=== PATIENT | female | born 1990 | race Caucasian/White ===

== ENCOUNTER 2018-01-18 07:13 | Inpatient (IN) | payer OTHER ==
[2018-01-18] MEDS ORDERED: ACETAMINOPHEN 500 MG TAB PO PRN (07:55)
[2018-01-18] MEDS ORDERED: METOCLOPRAMIDE 10 MG/2mL INJ IV PRN (07:55)
[2018-01-18] MEDS ORDERED: miSOPROStol 100 MCG TAB PO ONE (07:55)
[2018-01-18] MEDS ORDERED: ONDANSETRON 4 MG/2 ML VIAL IV PRN (07:55)
[2018-01-18] MEDS ORDERED: Ringers Lactate 1,000 ML IV PRN (07:55)
[2018-01-18] MEDS ORDERED: Ringers Lactate 1,000 ML IV SCH (08:00)
[2018-01-18] MEDS ORDERED: DIPHENHYDRAMINE 50 MG/ML VIAL IV PRN (08:02)
[2018-01-18 08:24] LABS: RPR Titer ND
[2018-01-18 08:36] LABS: Absolute Lymphocytes (CBC) 1.9 K/uL (0.7-4.9); Absolute Monocytes 0.6 K/uL (0.1-1.3); Absolute Neutrophil 6.8 K/uL (1.8-8.0); Basophils % 0.4 % (0-1.3); Eosinophils % 1.9 % (0-4.4); Hematocrit 31.9 % (36.0-45.0); Lymphocytes % 20.4 % (15.3-44.8); MCH 32.1 pg (27.0-35.0); MCV 89.5 fL (80-100); MPV 11.4 fL (7.6-11.3); Monocytes % 6.2 % (3.3-12.3); RBC Red Blood Cell Count 3.56 M/uL (3.86-4.86)
[2018-01-18 08:45] LABS: Urine Appearance CLOUDY; Urine Blood 1+ (NEG); Urine Color DK YELLOW; Urine Glucose NEGATIVE (NEG); Urine Protein 2+ (NEG); Urine Specific Gravity 1.025 (1.005-1.030); Urine Urobilinogen 0.2 mg/dL (0.2-1.0)
[2018-01-18 09:16] LABS: Blood Morphology Comment NOT SEEN (NOT SEEN); Platelet Estimate ADEQ; Platelets, Giant FEW
[2018-01-18 09:19] LABS: Albumin 2.9 g/dL (3.2-5.5); Bilirubin Total 0.4 mg/dL (0.3-1.2); Protein, Total 6.2 g/dL (6.0-8.3)
[2018-01-18 09:25] LABS: Urine Microscopic Reflex ORDER UMIC
[2018-01-18 09:26] LABS: Urine Bacteria 20-50 /HPF (<20); Urine Bilirubin 1+ (NEG); Urine Culture Reflex Order NOT NEEDED; Urine Mucus 1+ /HPF (NONE SEEN)
[2018-01-18 09:33] LABS: Potassium 4.2 mEq/L (3.6-5.0)
--- NOTE | 2018-01-18 11:52 | P.HP ---
Certification for Inpatient Patient admitted to: Inpatient With expected LOS: >2 Midnights Patient will require the following post-hospital care: None Practitioner: I am a practitioner with admitting privileges, knowledge of patient current condition, hospital course, and medical plan of care. Services: Services provided to patient in accordance with Admission requirements found in Title 42 Section 412.3 of the Code of Federal Regulations Patient History Date of Service: 01/18/18 Reason for admission: Induction for CHTN History of Present Illness: 27 y.o. G1 at 37w2d admitted for IOL due to h/o elevated blood pressures starting in first trimester. BPs remained within normal ranges until approximately 34 weeks and became mild ranges once again with development of some S/Sx concerning for preeclampsia with negative work ups. 24 hour urine collection done, but less than diagnostic criteria. Pt with recurring migraines and some vision changes, thus she was treated with one dose of BMTZ for lung maturity in the event delivery was indicated . She has overall improved, but persistent mild range pressures noted with occasional severe range and HAs refractory to fioricet. Discussion for indicated early term delivery was agreed upon. ADA:02/06/2018. GBS negative. Allergies hydrocodone Allergy (Verified 12/21/17 10:41) Nausea/Vomiting promethazine [From Phenergan] Allergy (Verified 12/21/17 10:41) Itching/Hives/Rash - Past Medical/Surgical History -: H/o migraines -: Finger surgery - Social History Alcohol use: No CD- Drugs: No Caffeine use: No Review of Systems 10-point ROS is otherwise unremarkable Physical Examination - Physical Exam General: Alert, In no apparent distress, Oriented x3 Respiratory: Clear to auscultation bilaterally, Normal air movement Cardiovascular: Regular rate/rhythm, Normal S1 S2 Musculoskeletal: No swelling, No tenderness Integumentary: No rashes, No breakdown Neurological: Normal speech, Normal strength at 5/5 x4 extr, Normal reflexes 2+ - Studies Laboratory Data (last 24 hrs) 01/18/18 07:30: Sodium 133 L, Potassium 4.2, BUN 10, Creatinine 0.77, Glucose 77 , Uric Acid 4.0, Total Bilirubin 0.4, AST 25, ALT 15, Alkaline Phosphatase 133 H 01/18/18 07:30: WBC 9.5, Hgb 11.4 L, Hct 31.9 L, Plt Count 187 Female Exam - Female Pelvic Cervix: Dilation (3), Effacement (50), station (0) Uterus: Non-tender, Soft, Gravid - Obstetrics heart rate tracing: Category 1 Contractions: Frequency (Occasional) Amniotic membrane: Intact Assessment and Plan - Problems (Diagnosis) (1) Hypertension affecting in third trimester Current Visit: No Status: Acute Plan: Admitted for eIOL. Started cervical ripening with cytotec. Pitocin to be started when favorable. Continuous monitoring planned with pitocin. Epidural per patient request. - Advance Directives Does patient have a Living Will: No Does patient have a Durable POA for Healthcare: No
[2018-01-18 11:58] VITALS: BMI 35.6
[2018-01-18] MEDS ORDERED: OXYTOCIN/LR 20 UNIT/1,000 ML BAG IV ONE (12:50)
[2018-01-18] MEDS ORDERED: ROPIVACAINE HCL 100 ML IV PRN (15:00)
[2018-01-18] MEDS ORDERED: FENTANYL CITR 100 MCG/2 ML IV ONE (15:00)
[2018-01-18] MEDS ORDERED: ROPIVACAINE HCL 0.2% 20ML AMP SQ ONE (15:01)
--- NOTE | 2018-01-18 16:57 | P.PN ---
Date of Service: 01/18/18 Pt seen and examined. She is now comfortable with epidural. BPs have improved. Discussed AROM and patient agreed. Procedure done without incident. Clear fluid noted. FHR is cat I. Continue current care, monitoring.
[2018-01-18] MEDS ORDERED: LABETALOL 20 MG/4ML SYRINGE IV ONE ×2 (19:41→20:04)
[2018-01-18] MEDS ORDERED: ACETAMIN/CAFFEINE/BUTALB TAB PO ONE (20:20)
[2018-01-18 21:38] LABS: RPR (Rapid Plasma Reagin) NON-REACT (NON-REACT)
[2018-01-19] MEDS ORDERED: FENTANYL CITR 100 MCG/2 ML ONE (01:07)
[2018-01-19] MEDS ORDERED: CARBOPROST TROME 250 MCG/ML IM ONE (01:08)
[2018-01-19] MEDS ORDERED: LIDOCAINE 1% MPF 30 ML VIAL ONE (01:08)
[2018-01-19] MEDS ORDERED: FENTANYL/BUPIVACAINE/NS/PF 200 MCG/100 ML BAG EP ONE (01:09)
[2018-01-19] MEDS ORDERED: ROPIVACAINE HCL 20 ML ONE (01:29)
[2018-01-19] MEDS ORDERED: BUPIVACAINE 0.25% PF 10 ML VIAL ONE (01:48)
[2018-01-19] MEDS ORDERED: MAGNESIUM SULF/STERILE WATER 1,000 ML IV ONE (03:33)
--- NOTE | 2018-01-19 07:21 | P.OP ---
Preoperative diagnosis: Early term IUP, CHTN Postoperative diagnosis: Same with severe hypertension, compound hand presentation Primary procedure: Kiwi vacuum assisted vaginal delivery Secondary procedure: Episiotomy Anesthesia: Epidural Estimated blood loss: 500 cc Specimen: Placenta Findings: See operative report Operative Technique: FINDINGS: Bello female fetus in OBI position with compound hand presentation. APGARS of 7/8 were recorded at 1 and 5 minutes, respectively. Weight of 6 # 12 oz. Right mediolateral episiotomy was done. No other lacerations noted. Amniotic fluid was clear. Normal appearing placenta. EBL: 500 cc. Stage I: 10h, 14 min and stage II: 3h and 5 min. PROCEDURE: Description: This is a 27-year-old G1 who was admitted for induction of labor at early term due h/o CHTN and worsening blood pressures. She was started on pitocin. FHR was reassuring during labor. Epidural was placed for pain control. AROM was done and clear fluid was noted. Labor progressed normally. When she became complete, severe range blood pressures were noted. She was treated with IV-labetalol x2 and magnesium was started for seizure prophylaxis due to persistent severe range pressures. She labored down and 2nd stage was started when she felt the urge to push. During pushing, patient began to experience pain and had difficulty with pushing effectively. Slow progress was noted on further descent of head. Operative delivery using a Kiwi vacuum was discussed and patient accepted. head was at +1 station. Blake catheter was in place. A right mediolateral episitomy was done. Next, the vacuum was placed and the correct placement in front of the posterior fontanelle was confirmed digitally. With the patient's next contraction, the vacuum was activated and a gentle downward pressure was used until the baby's head delivered atraumatically with one pull and not pop-off. The vacuum suction was released and device was removed. Next, a shoulder dystocia was encountered and compound presentation was noted. It was not reducible. McRobert's maneuver was done and suprapubic pressure was applied, delivering the anterior shoulder and gentle upwards traction was applied, delivering the posterior shoulder and compound hand presentation. The remainder of the body delivered easily and time was recorded at 06:09. Total time to reduce dystocia was approximately 1 minute. The baby's mouth was bulb-suctioned and the cord was clamped and cut. was taken to the warmer. depression was noted which responded to tactile stimulation and blow-by. Shortly after, the infant was vigorous, crying, and moving all extremities. Spontaneous delivery of an intact placenta with a three-vessel cord was noted at 06:12. On examination, there was extension of the episiotomy to a 2nd degree. It was repaired in the usual fashion using 2-0 vicryl. Excellent hemostasis was noted. On vaginal exam, there were no noted cervical or vaginal sidewall lacerations. Estimated blood loss was 500 cc. Mild uterine atony was noted, bi-manual exam was done and patient was treated with hemabate IM x1. Uterine tone improved. Mother and are in recovery doing well at this time. Complications: Other (Mild dystocia) Fluids & blood products: mIVF Transferred to: Recovery Room Condition: Good
[2018-01-19] MEDS ORDERED: PHENOBARBITAL 32.4 MG TABLET PO SCH (08:00)
[2018-01-19 08:10] LABS: Absolute Lymphocytes (CBC) 0.8 K/uL (0.7-4.9); Absolute Monocytes 1.1 K/uL (0.1-1.3); Absolute Neutrophil 20.2 K/uL (1.8-8.0); Basophils % 0.1 % (0-1.3); Hematocrit 27.9 % (36.0-45.0); Lymphocytes % 3.5 % (15.3-44.8); MCH 31.7 pg (27.0-35.0); MPV 11.3 fL (7.6-11.3); Monocytes % 4.8 % (3.3-12.3); RBC Red Blood Cell Count 3.06 M/uL (3.86-4.86)
[2018-01-19 08:14] LABS: Albumin 2.4 g/dL (3.2-5.5); Bilirubin Total 0.8 mg/dL (0.3-1.2); Potassium 3.5 mEq/L (3.6-5.0); Protein, Total 5.6 g/dL (6.0-8.3)
[2018-01-19 08:16] LABS: Magnesium 4.7 mg/dL (1.8-2.5)
[2018-01-19] MEDS ORDERED: CEFAZOLIN/SWI 1gm 1 GM/10 ML SYR IV ONE (08:45)
[2018-01-19 09:07] LABS: Blood Morphology Comment NOT SEEN (NOT SEEN); Platelet Estimate ADEQ
[2018-01-19] MEDS ORDERED: KETOROLAC 30 MG/ML INJ ONE (11:31)
[2018-01-19] MEDS ORDERED: KETOROLAC 30 MG/ML INJ IV ONE (13:05)
[2018-01-19] MEDS ORDERED: BISACODYL E.C. 5 MG TAB PO PRN (20:55)
[2018-01-19] MEDS ORDERED: DIPHENHYDRAMINE 25 MG TAB/CAP PO PRN (21:28)
[2018-01-19] MEDS ORDERED: METOCLOPRAMIDE 5 MG TAB PO PRN (21:28)
[2018-01-19] MEDS ORDERED: ZOLPIDEM TARTRATE 5 MG TABLET PO PRN (21:28)
[2018-01-19] MEDS ORDERED: ONDANSETRON 4 MG (ODT) TAB PO PRN ×2 (21:28)
[2018-01-19] MEDS ORDERED: IBUPROFEN 400 MG TAB PO PRN (21:33)
--- NOTE | 2018-01-19 22:07 | P.PN ---
Date of Service: 01/19/18 process reviewed. Pt was on magnesium sulfate for about 12 hours and diuresis noted. Blood pressures remained in normal to mild ranges. Care discussed with MARITA Sanford who reported pt request to d/c medication. Due to appropriate response to therapy, approved discontinuation of magnesium and advancing diet given no change in status following cessation of meds. Pt remained stable and diet was advanced. IVF and davidson were discontinued with close monitoring of vitals and continued monitoring of UOP. Ambulation encouraged and meds transitioned to PO route. Repeat labs in AM ordered.
[2018-01-19] MEDS: CODEINE 30MG/APAP 300MG TAB PO PRN (23:01)
[2018-01-19] MEDS: DOCUSATE NA/SENNA CONC 1 TAB PO PRN (23:01)
[2018-01-20] MEDS: CODEINE 30MG/APAP 300MG TAB PO PRN ×3 (03:05→19:27)
[2018-01-20 04:30] LABS: Absolute Lymphocytes (CBC) 2.3 K/uL (0.7-4.9); Absolute Monocytes 0.9 K/uL (0.1-1.3); Absolute Neutrophil 12.2 K/uL (1.8-8.0); Basophils % 0.2 % (0-1.3); Eosinophils % 0.3 % (0-4.4); Lymphocytes % 14.7 % (15.3-44.8); MCH 30.7 pg (27.0-35.0); MCV 92.3 fL (80-100); MPV 10.9 fL (7.6-11.3); Monocytes % 5.6 % (3.3-12.3); RBC Red Blood Cell Count 1.98 M/uL (3.86-4.86)
[2018-01-20 04:51] LABS: Hematocrit 18.3 % (36.0-45.0)
--- NOTE | 2018-01-20 11:23 | P.PN ---
Subjective Date of Service: 01/20/18 Chief Complaint: Induction for CHTN Subjective: Tolerating diet, Ambulating, Improving (Feels much better today. Pain is well controlled. Patient denies chest pain, difficulty breathing, or palpitations while ambulatory. She is trying to breastfeed.), Doing well Review of Systems 10-point ROS is otherwise unremarkable Physical Examination - Vital Signs Temperature: 97.9 F Blood Pressure: 118/57 Pulse: 75 Respirations: 18 - Physical Exam General: Alert, In no apparent distress, Oriented x3 Respiratory: Clear to auscultation bilaterally, Normal air movement Cardiovascular: Regular rate/rhythm, Normal S1 S2 Gastrointestinal: Soft and benign, Non-distended, No tenderness, No masses, No guarding, Other (Uterus firm and below umbilicus) Musculoskeletal: No erythema, No tenderness, Swelling (Trace B/L LE edema) Integumentary: No rashes, No breakdown Neurological: Normal speech, Normal strength at 5/5 x4 extr, Cranial nerves 3- 12 intact - Studies Laboratory Data (last 24 hrs) 01/20/18 04:12: WBC 15.5 H D, Hgb 6.1 L* D, Hct 18.3 L* D, Plt Count 169 01/19/18 13:24: Magnesium 5.8 H* D Assessment And Plan - Current Problems (Diagnosis) (1) Hypertension affecting in third trimester Onset Date: 01/19/18 Current Visit: Yes Status: Resolved Plan: S/p treatment with magnesium for seizure prophylaxis. BPs mostly within normal ranges, but are labile. Continue to monitor. UOP has been adequate. (2) Anemia due to acute blood loss Current Visit: Yes Status: Acute Plan: No signs of active bleeding and patient is asymptomatic. Ordered repeat labs. (3) Shoulder dystocia during labor and delivery, delivered Current Visit: Yes Status: Acute Plan: Possible risk of recurrence with future . Provide patient counseling for subsequent . (4) Vacuum extractor delivery, delivered Current Visit: Yes Status: Acute Discharge Plan: Home Plan to discharge in: 24 Hours
[2018-01-20 12:26] LABS: Absolute Monocytes 0.6 K/uL (0.1-1.3); Absolute Neutrophil 11.3 K/uL (1.8-8.0); Basophils % 0.2 % (0-1.3); Eosinophils % 0.7 % (0-4.4); Hematocrit 17.2 % (36.0-45.0); Lymphocytes % 14.4 % (15.3-44.8); MCH 31.3 pg (27.0-35.0); MCV 92.3 fL (80-100); MPV 10.6 fL (7.6-11.3); Monocytes % 4.4 % (3.3-12.3); RBC Red Blood Cell Count 1.87 M/uL (3.86-4.86)
[2018-01-20 12:58] LABS: Albumin 2.2 g/dL (3.2-5.5); Bilirubin Total 0.2 mg/dL (0.3-1.2); Potassium 4.2 mEq/L (3.6-5.0)
--- NOTE | 2018-01-20 13:42 | P.PN ---
Date of Service: 01/20/18 RN call to discuss findings of repeat a CBC. H&H slightly lower, but overall stable. RN reports patient feels well and has been up and ambulating and is without signs or symptoms. No signs of active bleeding her report. VSS, pulse normal. Will continue to monitor. Repeat labs in AM.
[2018-01-20] MEDS: FERROUS SULFATE 325 MG TAB PO SCH ×2 (14:00→21:00)
[2018-01-20] MEDS: DOCUSATE NA/SENNA CONC 1 TAB PO PRN (21:00)
[2018-01-21 03:40] LABS: HBsAG Nonreactive (Nonreactive)
[2018-01-21 05:24] LABS: Absolute Lymphocytes (CBC) 2.6 K/uL (0.7-4.9); Absolute Monocytes 0.5 K/uL (0.1-1.3); Absolute Neutrophil 6.7 K/uL (1.8-8.0); Basophils % 0.2 % (0-1.3); Hematocrit 15.6 % (36.0-45.0); Lymphocytes % 25.7 % (15.3-44.8); MCH 31.7 pg (27.0-35.0); MCV 93.7 fL (80-100); MPV 10.1 fL (7.6-11.3); Monocytes % 5.5 % (3.3-12.3); RBC Red Blood Cell Count 1.66 M/uL (3.86-4.86)
[2018-01-21 07:21] LABS: Bicarbonate 25 mEq/L (21-31); Glucose Level 88 mg/dL (65-120); Potassium 4.5 mEq/L (3.6-5.0); Sodium Level 138 mEq/L (135-145)
[2018-01-21 07:22] LABS: BUN Blood Urea Nitrogen 7 mg/dL (6-20); Glomerular Filtration Rate > 90 mL/min (=/>90)
[2018-01-21 07:28] LABS: Protime INR 0.82
[2018-01-21 07:43] LABS: Anisocytosis 1+; Blood Morphology Comment NOTED (NOT SEEN); Platelet Estimate ADEQ
[2018-01-21] MEDS: CODEINE 30MG/APAP 300MG TAB PO PRN ×2 (07:43→23:00)
[2018-01-21 07:44] LABS: Basophilic Stippling 1+
[2018-01-21] MEDS ORDERED: NA CHLORIDE 0.9% 500 ML ONE (08:56)
[2018-01-21] MEDS ORDERED: NA CHLORIDE 0.9% 250 ML IV SCH (09:00)
[2018-01-21] MEDS: FERROUS SULFATE 325 MG TAB PO SCH ×2 (09:00→21:40)
[2018-01-21] MEDS ORDERED: DOXYCYCLINE 100 MG in NA CHLORIDE 0.9% 100 ML IVPB ONE (10:09)
--- NOTE | 2018-01-21 10:11 | P.PN ---
Subjective Date of Service: 01/21/18 Chief Complaint: Induction for CHTN Subjective: No C/O voiced (Pt feels well and denies CP, SOB, palpitations, dizziness or difficulty while ambulatin. [place] described as a little more than menses. Lab results discussed. Transfusion is on-going.), Tolerating diet , Ambulating, Doing well Review of Systems 10-point ROS is otherwise unremarkable Physical Examination - Vital Signs Temperature: 97.7 F Blood Pressure: 141/70 Pulse: 83 Respirations: 18 - Physical Exam General: Alert, In no apparent distress, Oriented x3 Respiratory: Other (Normal effort) Cardiovascular: Normal pulses Gastrointestinal: Soft and benign, Non-distended, Other (Uterus firm and below umbilicus.) Musculoskeletal: No swelling, No tenderness Integumentary: No rashes, No breakdown Other Physical/Emotional Findings: Sterile exam: ~100 cc of dark clotted blood in vault. Episiotomy site is well approximated without bleeding. - Studies Laboratory Data (last 24 hrs) 01/21/18 06:50: Sodium 138, Potassium 4.5, BUN 7, Creatinine 0.70, Glucose 88 01/21/18 06:27: PT 9.6, INR 0.82, APTT 21.0 L 01/21/18 06:03: PT Cancelled, INR Cancelled 01/21/18 04:18: WBC 10.0 D, Hgb 5.3 L*, Hct 15.6 L*, Plt Count 151 L 01/20/18 12:08: Sodium 136, Potassium 4.2, BUN 9, Creatinine 0.85, Glucose 108, Total Bilirubin 0.2 L, AST 28, ALT 13, Alkaline Phosphatase 95 01/20/18 12:08: WBC 14.1 H, Hgb 5.8 L*, Hct 17.2 L*, Plt Count 175 Assessment And Plan - Current Problems (Diagnosis) (1) Hypertension affecting in third trimester Onset Date: 01/19/18 Current Visit: Yes Status: Resolved Plan: S/p treatment with magnesium for seizure prophylaxis. BPs mostly within normal ranges, but are labile. Continue to monitor. UOP has been adequate. (2) Anemia due to acute blood loss Current Visit: Yes Status: Acute Plan: Additional drop noted in H&H on repeat labs this morning. Ordered transfusion of 2 units of packed red blood cells and patient accepted. She is currently receiving first unit of blood. Sterile exam done and dark clots noted in vault. I suspect additional clots, but unable to express at bedside. Discussed D&C with U/S guidance. Pt agrees to procedure. Benefits, risks discussed including possible need for additional blood products and/or hysterectomy if bleeding is not controlled. Episiotomy is well approximated with no active bleeding noted. She verbalized understanding and agreed. Questions answered. OR staff and anesthesia notified. (3) Shoulder dystocia during labor and delivery, delivered Current Visit: Yes Status: Acute Plan: Possible risk of recurrence with future . Provide patient counseling for subsequent . (4) Vacuum extractor delivery, delivered Current Visit: Yes Status: Acute
[2018-01-21] MEDS ORDERED: NA CIT/CITRIC AC 30 ML ORAL UDC PO ONE ×2 (11:00)
[2018-01-21] MEDS ORDERED: FAMOTIDINE 20 MG/2 ML VIAL IV ONE ×3 (11:00→11:23)
[2018-01-21] MEDS ORDERED: METOCLOPRAMIDE 10 MG/2mL INJ IV SCH (11:00)
[2018-01-21] MEDS ORDERED: METOCLOPRAMIDE 10 MG/2mL INJ IV ONE (11:00)
[2018-01-21] MEDS ORDERED: MIDAZOLAM HCL 2 MG/2 ML INJ ONE ×2 (11:13→12:27)
[2018-01-21] MEDS ORDERED: PROPOFOL 200 MG/20 ML VIAL IV ONE ×2 (11:13→12:25)
[2018-01-21] MEDS ORDERED: LIDOCAINE 2% MPF 5 ML VIAL ONE ×2 (11:14→12:27)
[2018-01-21] MEDS ORDERED: ONDANSETRON 4 MG/2 ML VIAL ONE ×2 (11:14→12:27)
[2018-01-21] MEDS ORDERED: FENTANYL CITR 100 MCG/2 ML ONE (11:14)
[2018-01-21] MEDS ORDERED: SILVER NITRATE 1 APPL TOP ONE (11:21)
[2018-01-21] MEDS ORDERED: METOCLOPRAMIDE 10 MG/2mL INJ ONE (11:23)
[2018-01-21] MEDS ORDERED: NA CIT/CITRIC AC 30 ML ORAL UDC ONE (11:23)
[2018-01-21] MEDS ORDERED: METHYLERGONOVINE 0.2MG/ML AMP IM ONE (12:05)
[2018-01-21] MEDS ORDERED: Ringers Lactate 1,000 ML IV ONE ×2 (12:08→20:25)
[2018-01-21] MEDS ORDERED: FENTANYL CITR 250 MCG/5 ML ONE (12:27)
[2018-01-21] MEDS ORDERED: ROCURONIUM 50 MG/5 ML VIAL IV ONE (12:40)
[2018-01-21] MEDS ORDERED: GLYCOPYRROLATE 0.2 MG/ML SYR ONE ×2 (13:14)
[2018-01-21] MEDS ORDERED: ALBUMIN HUM 5% 250 ML IV ONE (13:23)
[2018-01-21 13:43] VITALS: O2SAT 100
[2018-01-21] MEDS ORDERED: NEOSTIGMINE 1 MG/ML -5 ML SYRINGE ONE (13:44)
--- NOTE | 2018-01-21 13:52 | P.OP ---
Preoperative diagnosis: PPH, possible retained POC Postoperative diagnosis: Same Primary procedure: Suction D&C Anesthesia: General Estimated blood loss: 400 cc Specimen: POC Findings: See operative report Operative Technique: FINDINGS: Normal-appearing external genitalia, right mediolateral episiotomy well approximated and hemostatic. Cervix appeared normal without lacerations. Large, dark colored clots noted extending from cervix. Gentle curettage reveals large amount of clots consistent with findings on suction curette as well. Transabdominal ultrasound revealed a thickened endometrium. PROCEDURE: After informed consent was obtained, the patient was taken to the operating room where her general anesthesia was obtained without difficulty. She was prepped and draped in the dorsal lithotomy position. Antibiotics were given prior to start of procedure. Her bladder was drained with a red rubber catheter. Garvey and right angle vaginal retractors were placed in the patients vaginal vault. The anterior lip of the cervix was grasped with a single tooth tenaculum. Ultrasound guidance was utilized for visualization of endometrium and to measure endometrial thickness: 3.3 cm at start of procedure. Uterine sound was not done. Ultrasound guidance was used with advancement of curette. Additional cervical dilation was not required. Gentle curettage was done. Large amount of clots were expressed in collected to be sent to pathology. Repeat ultrasound was done and additional material was noted near fundus. Gentle curettage was performed without resolution of findings. The suction curettaged was employed to help clear remaining clots and debris. Using a #8 Kinyarwanda for suction D&C, additional clots were removed. All clots/debris were collected for pathology. Ultrasound was done once again following suction D&C for confirmation. Endometrial stripe was measured once again and noted to be markedly thinner as compared to previous imaging. This concluded the case. Tenaculum was removed and silver nitrate was applied to tenaculum sites to control bleeding. Hemostasis was achieved. All instruments removed removed from patient's vagina. She tolerated the procedure well and there were no complications. All instrument and lap counts were correct x2. She was taken to PACU in good condition. Complications: Other (Mild dystocia) Fluids & blood products: Per anesthesia Transferred to: Recovery Room Condition: Good
[2018-01-21 14:14] LABS: Hematocrit 21.7 % (36.0-45.0); MCH 31.4 pg (27.0-35.0); MPV 10.5 fL (7.6-11.3); RBC Red Blood Cell Count 2.34 M/uL (3.86-4.86)
--- NOTE | 2018-01-21 15:28 | RAD REPORT ---
EXAM DESCRIPTION: US - Ultrasound Intraop - 01/21/2018 1:27 pm FINDINGS: Limited intraoperative pelvic sonography performed. Imaging was performed in conjunction w ith the referring physician performing a D&C. Preliminary imaging shows a 3 centimeter thick endometrial cavity. Following the procedure, a thin 5 mm homogeneous Daniel thick endometrial stripe is seen. No retained products of conception, large hemato ma or other mass within the endometrial cavity.
[2018-01-21] MEDS ORDERED: KETOROLAC 30 MG/ML INJ ONE (15:33)
[2018-01-21 18:02] LABS: Hematocrit 22.1 % (36.0-45.0); MCV 92.8 fL (80-100); MPV 9.6 fL (7.6-11.3); RBC Red Blood Cell Count 2.38 M/uL (3.86-4.86)
[2018-01-21] MEDS: DOCUSATE NA/SENNA CONC 1 TAB PO PRN (21:40)
[2018-01-21 23:04] LABS: Hematocrit 20.1 % (36.0-45.0)
[2018-01-22] MEDS: CODEINE 30MG/APAP 300MG TAB PO PRN (06:02)
[2018-01-22 06:18] LABS: MCH 31.5 pg (27.0-35.0); MPV 9.3 fL (7.6-11.3); RBC Red Blood Cell Count 2.15 M/uL (3.86-4.86)
--- NOTE | 2018-01-22 07:16 | PN ---
A 27-year-old female, the patient of Dr. Olea, seems to be doing quite well this morning. H and H st able, hemoglobin of 7. Lochia scant. Her pulse is less than 90. She has no complaints at all. She has been ambulating. We will let her ambulate in the [place] this morning, and if she does well, she w ill be dismissed. She already has analgesics prescribed by Dr. Olea. She knows over the weekend if she has any problems with fever, pain, bleeding, she is to call back to Labor and Delivery for instru ctions. She is to call Dr. Olea's office today for further instructions about when her next appointm ent should be. She has had her Tdap immunization. She has no complaints or problems this morning an d looks quite good. HAYDEE/SARA Voice ID: [id number] Report ID: [id number]
[2018-01-22 08:03] VITALS: BP 146/84; TEMP 96.7
== END 2018-01-22 10:00 | disposition home or self-care (01) | DRG 767 ==
LOC: 2ND-WC 07:13
PROVIDERS: ADMIT Obstetrics & Gynecology; ATTEND Obstetrics & Gynecology
PROC: 10907ZC Drainage of Amniotic Fluid, Therapeutic from Products of Conception, Via Natural or Artificial Opening (ICD-10-PCS; principal; 2018-01-18)
PROC: 3E0P7VZ Introduction of Hormone into Female Reproductive, Via Natural or Artificial Opening (ICD-10-PCS; 2018-01-18)
PROC: 3E033VJ Introduction of Other Hormone into Peripheral Vein, Percutaneous Approach (ICD-10-PCS; 2018-01-18)
PROC: 10D07Z6 Extraction of Products of Conception, Vacuum, Via Natural or Artificial Opening (ICD-10-PCS; 2018-01-19)
PROC: 0W8NXZZ Division of Female Perineum, External Approach (ICD-10-PCS; 2018-01-19)
PROC: 10D17Z9 Manual Extraction of Products of Conception, Retained, Via Natural or Artificial Opening (ICD-10-PCS; 2018-01-21)
DX: O66.0 Obstructed labor due to shoulder dystocia (principal); D62 Acute posthemorrhagic anemia; O72.2 Delayed and secondary postpartum hemorrhage; O72.1 Other immediate postpartum hemorrhage; O32.6XX0 Maternal care for compound presentation, not applicable or unspecified; O16.4 Unspecified maternal hypertension, complicating childbirth; O32.4XX0 Maternal care for high head at term, not applicable or unspecified; O99.02 Anemia complicating childbirth; O66.5 Attempted application of vacuum extractor and forceps; Z3A.37 37 weeks gestation of pregnancy
CPT/HCPCS: 36415; 76998; 80048; 80053; 81003; 81015; 83735; 84550; 85014; 85018; 85025; 85027; 85610; 85730; 86592; 86850; 86900; 86901; 87340; 88305; 88307; J0690; J2210; J2250; J2405; J2590; J2710; J2765; J2795; J3010; J3475; P9016; P9045

== ENCOUNTER 2020-01-05 17:49 | Emergency (ER) | payer OTHER ==
--- OUTSIDE RECORDS SUMMARY | 2020-01-05 17:51 | XMS REPORT ---
:1990 Author Organization [employer] Care Team Providers Name Role Phone Kareem Gil Provider Role Unavailable Allergies, Adverse Reactions, Alerts Substance Reaction Event Type Phenergan Info Not Available Drug Allergy Hydrocodone Bitartrate Info Not Available Drug Allergy Problems Problem Type Condition Code Onset Dates Condition Status Problem Other immediate O72.1 Active hemorrhage Problem Encounter for insertion of Z30.430 Active intrauterine contraceptive device Assessment Atypical squamous cells of R87.610 Active undetermined significance on cytologic smear of cervix (ASC-US) Assessment Cervical high risk human R87.810 Active papillomavirus (HPV) DNA test positive Problem Atypical squamous cells of R87.610 Active undetermined significance on cytologic smear of cervix (ASC-US) Problem IUD surveillance Z30.431 Active Problem Cervical high risk human R87.810 Active papillomavirus (HPV) DNA test positive Problem Fever, unspecified fever cause R50.9 Active Problem Irritable bowel syndrome, K58.9 Active unspecified type Problem Well woman exam with routine Z01.419 Active gynecological exam Problem Exposure to the flu Z20.828 Active Medications Medication Code Code Instructions Start End Status Dosage System Date Date Tamiflu [facility] 51903126217 75 MG Orally Dec 08, Active 1 capsule Twice a day 2018 Mirena (52 [facility] 77103362775 20 MCG/24HR Active not defined MG) Intrauterine Multi Adult [facility] 43022928373 - Orally Active as directed Gummies Dibucaine [facility] 05801808722 1 % Externally April 09, Active 1 application Three times a 2018 to affected day area as needed Vitamin B-12 [facility] 71783094762 5000 MCG Active 2 tablets Sublingual Once a day Results No Known Results Summary Purpose [employer] Submission
--- OUTSIDE RECORDS SUMMARY | 2020-01-05 17:51 | XMS REPORT ---
:1990 Author Organization [employer] Care Team Providers Name Role Phone Yasmine Rasheed Provider Role Unavailable Allergies, Adverse Reactions, Alerts Substance Reaction Event Type Phenergan Info Not Available Drug Allergy Hydrocodone Bitartrate Info Not Available Drug Allergy Problems Problem Type Condition Code Onset Dates Condition Status Problem Other immediate O72.1 Active hemorrhage Problem Encounter for insertion of Z30.430 Active intrauterine contraceptive device Assessment Encounter for immunization Z23 Active Assessment Viral URI J06.9 Active Problem Atypical squamous cells of R87.610 Active [...] Start End Status Dosage System Date Date Vitamin B-12 [facility] [place] 44462757616 5000 MCG Active 2 tablets Sublingual Once a day Multi Adult [facility] [place] [id number] - Orally Active as directed Gummies Results Name Result Date Reference Range Unit Abnormality Flag FLU TEST A/B ----A Neg [id number] ----B Neg [id number] Immunizations Vaccine Administration Date Flucelvax - single dose syringe Dec 15, 2019 Summary Purpose [employer] Submission
[2020-01-05] MEDS ORDERED: NA CHLORIDE 0.9% 1,000 ML ONE ×2 (18:29→19:13)
[2020-01-05] MEDS ORDERED: ONDANSETRON 4 MG/2 ML VIAL ONE ×2 (18:40→19:50)
[2020-01-05] MEDS ORDERED: ONDANSETRON 4 MG (ODT) TAB ONE (18:40)
[2020-01-05 18:48] LABS: Absolute Lymphocytes (CBC) 1.5 K/uL (0.7-4.9); Basophils % 0.4 % (0-1.3); Hematocrit 37.4 % (36.0-45.0); Lymphocytes % 16.6 % (15.3-44.8); MPV 9.8 fL (7.6-11.3); RBC Red Blood Cell Count 4.11 M/uL (3.86-4.86)
[2020-01-05 18:56] LABS: Urine Blood TRACE (NEG); Urine Glucose NEGATIVE (NEG); Urine Protein 1+ (NEG); Urine Specific Gravity >1.030 (1.005-1.030); Urine pH 5.5 (5.0-7.0)
[2020-01-05 19:00] LABS: BUN Blood Urea Nitrogen 9 mg/dL (7-18); Bicarbonate 21 mmol/L (21-32); Glucose Level 93 mg/dL (74-106); Potassium 3.5 mmol/L (3.5-5.1); Sodium Level 136 mmol/L (136-145)
[2020-01-05] MEDS ORDERED: FAMOTIDINE 20 MG/2 ML VIAL IV ONE (20:33)
[2020-01-05] MEDS ORDERED: DIPHENHYDRAMINE 50 MG/ML VIAL ONE (21:09)
--- NOTE | 2020-01-05 21:27 | ER ---
Nurse's Notes [facility] Name: Jenniffer Barragan Age: 29 yrs Sex: Female : 1990 Arrival Date: 01/05/2020 Time: 17:54 Bed 18 Private MD: Diagnosis: Vomiting of , unspecified Presentation: 01/04 18:15 Chief complaint: Patient states: Constant nausea and vomiting that began 48 hours ago. Pt reports that she is 8 weeks and 4 days . Coronavirus screen: The patient has NOT traveled to a country currently being monitored by the [facility] within the last 14 days. Proceed with normal triage procedures. Ebola Screen: Patient denies exposure to infectious person. Patient denies travel to an Ebola-affected area in the 21 days before illness onset. Initial Sepsis Screen: Does the patient meet any 2 criteria? No. Patient's initial sepsis screen is negative. Does the patient have a suspected source of infection? No. Patient's initial sepsis screen is negative. Risk Assessment: Do you want to hurt yourself or someone else? Patient reports no desire to harm self or others. 18:15 Method Of Arrival: Ambulatory 18:15 Acuity: ALFONZO 3 ss 21:51 Onset of symptoms is unknown. 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 - Social history:: Smoking status: Patient denies any tobacco usage or history of. Screenin:20 Abuse screen: Denies threats or abuse. Nutritional screening: No deficits noted. em Tuberculosis screening: No symptoms or risk factors identified. Fall Risk None identified. Assessment: 18:20 General: Appears in no apparent distress. comfortable, Behavior is calm, cooperative, em Denies fever. Pain: Denies pain. Neuro: Level of Consciousness is awake, alert, obeys commands, Oriented to person, place, time, situation, Appropriate for age Denies dizziness. Cardiovascular: Capillary refill < 3 seconds Patient's skin is warm and dry. Respiratory: Airway is patent Respiratory effort is even, unlabored, Respiratory pattern is regular, symmetrical. GI: Abdomen is flat, Bowel sounds present X 4 quads. Abd is soft and non tender X 4 quads. Reports nausea, vomiting. : Urine is clear, dark yellow Denies burning with urination, vaginal bleeding. Derm: Skin is intact, is healthy with good turgor, Skin is pink, warm \T\ dry. Musculoskeletal: Capillary refill < 3 seconds, Range of motion: intact in all extremities. 19:20 Reassessment: Patient appears in no apparent distress at this time. Patient and/or ah family updated on plan of care and expected duration. Pain level reassessed. Patient is alert, oriented x 3, equal unlabored respirations, skin warm/dry/pink. Patient states symptoms have improved. GI: Reports nausea improving, no vomiting at this time. 19:53 Reassessment: Pt states that she has been nauseated since trying the ice chips and has ah started dry heaving. Reported to BILLET RECORDER and received order to administer zofran. Zofran administered and Pt tolerated well. 21:15 Reassessment: Patient appears in no apparent distress at this time. Patient and/or family updated on plan of care and expected duration. Pain level reassessed. Patient is alert, oriented x 3, equal unlabored respirations, skin warm/dry/pink. Pt continues to have nausea and dry heaving. Benadryl administered and Pt given a cold rag at this time. 21:54 Reassessment: Patient and/or family updated on plan of care and expected duration. Pain ea level reassessed. Patient is alert, oriented x 3, equal unlabored respirations, skin warm/dry/pink. Discharge instruction given to patient verbalized the understanding of instruction, pt left ED ambulatory accompanied by family. Vital Signs: 18:15 BP 133 / 77; Pulse 88; Resp 18; Temp 98.3(TE); Pulse Ox 100% on R/A; Weight 92.99 kg; ss Height 5 ft. 5 in. (165.10 cm); Pain 0/10; 18:50 BP 112 / 51; Pulse 79; Resp 18; Pulse Ox 99% on R/A; Pain 0/10; em 19:30 BP 114 / 58; Pulse 63; Pulse Ox 100% ; ah 20:30 BP 119 / 63; Pulse 82; Pulse Ox 100% ; ah 21:00 BP 115 / 59; Pulse 82; Resp 17; Pulse Ox 100% ; ah 18:15 Body Mass Index 34.11 (92.99 kg, 165.10 cm) ED Course: 17:54 Patient arrived in ED. mr 17:57 Latoya Weber, AMA[facility]. kb 17:57 Everardo Bishop MD is Attending Physician. kb 18:17 Triage completed. ss 18:18 Arm band placed on right wrist. ss 18:20 Isai Corona, RN is Primary Nurse. em 18:20 Patient has correct armband on for positive identification. Bed in low position. Call em light in reach. Side rails up X2. Pulse ox on. NIBP on. 18:35 Initial lab(s) drawn, by me, sent to lab. Inserted saline lock: 20 gauge in left dh3 antecubital area, using aseptic technique. Blood collected. 19:40 Primary Nurse role handed off by Isai Corona, RN 19:40 Phoebe Cotter, RN is Primary Nurse. 21:20 Nurse Practitioner and/or Physician Certified Ethical Hacker to see patient. 21:48 No provider procedures requiring assistance completed. IV discontinued, intact, ah bleeding controlled, No redness/swelling at site. Pressure dressing applied. Administered Medications: 18:40 Drug: Zofran (Ondansetron) 4 mg Route: IVP; Site: left antecubital; em 19:30 Follow up: Response: No adverse reaction ea 18:45 Drug: NS 0.9% 1000 ml Route: IV; Rate: 1000 ml; Site: right antecubital; em 20:30 Follow up: Response: No adverse reaction; IV Status: Completed infusion; IV Intake: ea 1000ml 19:45 Drug: NS 0.9% 1000 ml Route: IV; Rate: 1000 ml; Site: left antecubital; ah 21:53 Follow up: Response: No adverse reaction; IV Status: Completed infusion; IV Intake: ea 900ml 19:52 Drug: Zofran (Ondansetron) 4 mg Route: IVP; Site: left antecubital; 20:33 Follow up: Response: No adverse reaction; Nausea unchanged ah 20:32 Drug: Pepcid 20 mg Route: IVP; Site: left antecubital; 21:53 Follow up: Response: No adverse reaction ea 21:15 Drug: Benadryl 12.5 mg Route: IVP; Site: left antecubital; 21:53 Follow up: Response: No adverse reaction ea 21:54 Follow up: Response: No adverse reaction Intake: 20:30 IV: 1000ml; Total: 1000ml. ea 21:53 IV: 900ml; Total: 1900ml. ea Outcome: 21:26 Discharge ordered by . kb 21:47 Discharged to home ambulatory. 21:47 Condition: good 21:47 Discharge instructions given to patient, family, Instructed on discharge instructions, follow up and referral plans. medication usage, Demonstrated understanding of instructions, follow-up care, medications, Prescriptions given X 1. 21:55 Patient left the ED. ea Signatures: Latoya Weber, HOME HEALTH NURSE LICENSED PRACTICAL-C HOME HEALTH NURSE LICENSED PRACTICAL-Ileana Arriola mr CoronaIsai, RN Maricruz Renteria RN RN ss Herrera, Deanna [facility] Mar Padilla RN RN ea Harris, Amy RN MARITA
--- NOTE | 2020-01-05 21:28 | EDPHYS ---
Physician Documentation [facility] Name: Jenniffer Barragan Age: 29 yrs Sex: Female : 1990 Arrival Date: 01/05/2020 Time: 17:54 Bed 18 Private MD: ED Physician Everardo Bishop HPI: 01/04 19:05 This 29 yrs old Female presents to ER via Ambulatory with complaints of kb Vomiting, 8 wks . 19:06 The patient presents to the emergency department with nausea and vomiting. The kb estimated gestational age is 8 weeks. course: care: private OB physician. Previous pregnancies: in previous pregnancies patient has had. Associated signs and symptoms: Pertinent positives: nausea, vomiting, Pertinent negatives: abdominal pain, vaginal bleeding, vaginal discharge. The patient has experienced similar episodes in the past. The patient has not recently seen a physician. Pt reports she has had nausea and vomiting since the beginning of this . States she is [id number]. Has been taking zofran since the beginning, but her insurance won't approve more than 21 a month [address] Dr is trying to get more approved. Started on reglan on Thursday, but that medication doesn't work. States she has not been able to tolerate anything by mouth for 48 hours so her OB told her to come in to see if she could get fluids and nausea medication. Pt reports she had worse nausea and vomiting with her first . 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 - Social history:: Smoking status: Patient denies any tobacco usage or history of. ROS: 19:00 Constitutional: Negative for fever, chills, and weight loss, Cardiovascular: Negative kb for chest pain, palpitations, and edema, Respiratory: Negative for shortness of breath, cough, wheezing, and pleuritic chest pain, Back: Negative for injury and pain, : Negative for injury, bleeding, discharge, and swelling, MS/Extremity: Negative for injury and deformity, Skin: Negative for injury, rash, and discoloration, Neuro: Negative for headache, weakness, numbness, tingling, and seizure. 19:00 Abdomen/GI: Positive for nausea and vomiting, Negative for abdominal pain, diarrhea, constipation, abdominal cramps, abdominal distension, anorexia. Exam: 19:00 Constitutional: This is a well developed, well nourished patient who is awake, alert, kb and in no acute distress. Head/Face: Normocephalic, atraumatic. Chest/axilla: Normal chest wall appearance and motion. Nontender with no deformity. No lesions are appreciated. Cardiovascular: Regular rate and rhythm with a normal S1 and S2. No gallops, murmurs, or rubs. Normal PMI, no JVD. No pulse deficits. Respiratory: Lungs have equal breath sounds bilaterally, clear to auscultation and percussion. No rales, rhonchi or wheezes noted. No increased work of breathing, no retractions or nasal flaring. Abdomen/GI: Soft, non-tender, with normal bowel sounds. No distension or tympany. No guarding or rebound. No evidence of tenderness throughout. Back: No spinal tenderness. No costovertebral tenderness. Full range of motion. Skin: Warm, dry with normal turgor. Normal color with no rashes, no lesions, and no evidence of cellulitis. MS/ Extremity: Pulses equal, no cyanosis. Neurovascular intact. Full, normal range of motion. Neuro: Awake and alert, GCS 15, oriented to person, place, time, and situation. Cranial nerves II-XII grossly intact. Motor strength 5/5 in all extremities. Sensory grossly intact. Cerebellar exam normal. Normal gait. Vital Signs: 18:15 BP 133 / 77; Pulse 88; Resp 18; Temp 98.3(TE); Pulse Ox 100% on R/A; Weight 92.99 kg; ss Height 5 ft. 5 in. (165.10 cm); Pain 0/10; 18:50 BP 112 / 51; Pulse 79; Resp 18; Pulse Ox 99% on R/A; Pain 0/10; em 19:30 BP 114 / 58; Pulse 63; Pulse Ox 100% ; ah 20:30 BP 119 / 63; Pulse 82; Pulse Ox 100% ; ah 21:00 BP 115 / 59; Pulse 82; Resp 17; Pulse Ox 100% ; ah 18:15 Body Mass Index 34.11 (92.99 kg, 165.10 cm) ss MDM: 18:20 Patient medically screened. kb 19:04 Data reviewed: vital signs, nurses notes. Data interpreted: Pulse oximetry: on room air kb is 100 %. Interpretation: normal. Counseling: I had a detailed discussion with the patient and/or guardian regarding: the historical points, exam findings, and any diagnostic results supporting the discharge/admit diagnosis, lab results, the need for outpatient follow up, an OB/Gyne specialist, to return to the emergency department if symptoms worsen or persist or if there are any questions or concerns that arise at home. 21:21 ED course: Pt states she is supposed to call her OB in the morning. States she has not kb tried diclegis during this and is willing to. Pt educated to return for worsening symptoms or any other concerns.. 03 18:21 Order name: CBC with Diff; Complete Time: 18:58 kb 01/04 18:21 Order name: Basic Metabolic Panel; Complete Time: 19:09 kb 01/04 18:36 Order name: Urine Dipstick--Ancillary (enter results); Complete Time: 18:58 ar5 01/04 18:36 Order name: Urine --Ancillary (enter results); Complete Time: 18:58 ar5 01/04 18:21 Order name: IV Start; Complete Time: 18:40 kb 01/04 18:21 Order name: Urine Dipstick-Ancillary (obtain specimen); Complete Time: 18:35 kb 01/04 19:13 Order name: PO challenge; Complete Time: 19:20 kb Administered Medications: 18:40 Drug: Zofran (Ondansetron) 4 mg Route: IVP; Site: left antecubital; em 19:30 Follow up: Response: No adverse reaction ea 18:45 Drug: NS 0.9% 1000 ml Route: IV; Rate: 1000 ml; Site: right antecubital; em 20:30 Follow up: Response: No adverse reaction; IV Status: Completed infusion; IV Intake: ea 1000ml 19:45 Drug: NS 0.9% 1000 ml Route: IV; Rate: 1000 ml; Site: left antecubital; ah 21:53 Follow up: Response: No adverse reaction; IV Status: Completed infusion; IV Intake: ea 900ml 19:52 Drug: Zofran (Ondansetron) 4 mg Route: IVP; Site: left antecubital; 20:33 Follow up: Response: No adverse reaction; Nausea unchanged 20:32 Drug: Pepcid 20 mg Route: IVP; Site: left antecubital; 21:53 Follow up: Response: No adverse reaction ea 21:15 Drug: Benadryl 12.5 mg Route: IVP; Site: left antecubital; 21:53 Follow up: Response: No adverse reaction ea 21:54 Follow up: Response: No adverse reaction Disposition: 01/05 07:02 Co-signature as Attending Physician, Everardo Bishop MD I agree with the assessment and kdr plan of care. Disposition: 01/05/20 21:26 Discharged to Home. Impression: Vomiting of , unspecified. - Condition is Stable. - Discharge Instructions: Hyperemesis Gravidarum. - Prescriptions for Diclegis 10- 10 mg Oral tablet,delayed release (DR/EC) - take 1 tablet by ORAL route once daily As needed; 15 tablet. - Medication Reconciliation Form, Thank You Letter, Antibiotic Education, Prescription Opioid Use, Work release form form. - Follow up: Emergency Department; When: As needed; Reason: Worsening of condition. Follow up: Private Physician; When: 2 - 3 days; Reason: Recheck today's complaints, Continuance of care, Re-evaluation by your physician. Signatures: Dispatcher [employer] Latoya Pederson, PUNCHBOARD FILLING MACHINE OPERATOR-C PUNCHBOARD FILLING MACHINE OPERATOR-CkEverardo Pinzon MD MD kdr Munoz, Edgar, RN RN em Smirch, Shelby, RN RN Mar Padilla RN RN ea Harris, Amy RN MARITA Corrections: (The following items were deleted from the chart) 01/04 21:55 21:26 01/05/2020 21:26 Discharged to Home. Impression: Vomiting of , ea unspecified. Condition is Stable. Forms are Medication Reconciliation Form, Thank You Letter, Antibiotic Education, Prescription Opioid Use. Follow up: Emergency Department; When: As needed; Reason: Worsening of condition. Follow up: Private Physician; When: 2 - 3 days; Reason: Recheck today's complaints, Continuance of care, Re-evaluation by your physician. kb
[2020-01-05 23:00] VITALS: TEMP 98.3
[2020-01-05 23:03] VITALS: O2SAT 100
[2020-01-05 23:06] VITALS: BP 115/59
== END 2020-01-05 21:55 | disposition home or self-care (01) ==
LOC: ER 17:49
DX: O21.9 Vomiting of pregnancy, unspecified (principal); Z3A.08 8 weeks gestation of pregnancy; Z88.5 Allergy status to narcotic agent; Z88.8 Allergy status to other drugs, medicaments and biological substances
CPT/HCPCS: 96361; 85025; 80048; 36415; 81025; 81003; 96375; 96374; 99284; J1200; J7030 ×2; J2405 ×2

== ENCOUNTER 2020-01-28 09:23 | Emergency (ER) | payer OTHER ==
--- OUTSIDE RECORDS SUMMARY | 2020-01-28 09:25 | XMS REPORT ---
[...] End Status Dosage System Date Date Tamiflu [facility] 61769459886 75 MG Orally Dec 08, Active 1 capsule Twice a day 2018 Mirena (52 [facility] 67246831675 20 MCG/24HR Active not defined MG) Intrauterine Multi Adult [facility] 55572187152 - Orally Active as directed Gummies Dibucaine [facility] 17366744937 1 % Externally April 09, Active 1 application Three times a 2018 to affected day area as needed Vitamin B-12 [facility] 81128199855 5000 MCG Active 2 tablets Sublingual Once a day Results No Known Results Summary Purpose eClinicalWorks Submission
--- OUTSIDE RECORDS SUMMARY | 2020-01-28 09:25 | XMS REPORT ---
[...] Status Dosage System Date Date Vitamin B-12 [facility] 81490662928 5000 MCG Active 2 tablets Sublingual Once a day Multi Adult [facility] 40898474640 - Orally Active as directed Gummies Results Name Result Date Reference Range Unit Abnormality Flag FLU TEST A/B ----A Neg [id number] ----B Neg [id number] Immunizations Vaccine Administration Date Flucelvax - single dose syringe Dec 15, 2019 Summary Purpose eClinicalWorks Submission
[2020-01-28] MEDS ORDERED: ONDANSETRON 4 MG/2 ML VIAL ONE (09:48)
[2020-01-28] MEDS ORDERED: NA CHLORIDE 0.9% 1,000 ML ONE ×2 (09:49→10:00)
[2020-01-28 09:57] LABS: Absolute Lymphocytes (CBC) 1.4 K/uL (0.7-4.9); Basophils % 0.4 % (0-1.3); Hematocrit 36.1 % (36.0-45.0); MPV 9.3 fL (7.6-11.3); RBC Red Blood Cell Count 3.94 M/uL (3.86-4.86)
[2020-01-28 10:25] LABS: Urine Blood NEGATIVE (NEG); Urine Glucose NEGATIVE (NEG); Urine Protein 1+ (NEG); Urine pH 8.5 (5.0-7.0)
[2020-01-28 10:29] LABS: ALT/SGPT 29 U/L (12-78); AST/SGOT 19 U/L (15-37); Albumin 3.3 g/dL (3.4-5.0); Alkaline Phosphatase 66 U/L (45-117); BUN Blood Urea Nitrogen 6 mg/dL (7-18); Bicarbonate 21 mmol/L (21-32); Bilirubin Direct 0.2 mg/dL (0-0.2); Bilirubin Total 0.5 mg/dL (0.2-1.0); Glucose Level 92 mg/dL (74-106); HCG, Quantitative 63362 mIU/mL (1-3); Lipase 80 U/L (73-393); Potassium 3.8 mmol/L (3.5-5.1); Protein, Total 7.5 g/dL (6.4-8.2); Sodium Level 138 mmol/L (136-145)
--- NOTE | 2020-01-28 10:50 | ER ---
Nurse's Notes [facility] Name: Jenniffer Barragan Age: 29 yrs Sex: Female : 1990 Arrival Date: 01/28/2020 Time: 09:26 Bed 13 Private MD: Diagnosis: Hyperemesis gravidarum with metabolic disturbance;Vomiting;Urinary tract infection, site not specified Presentation: 01/27 09:37 Chief complaint: Patient states: SENT BY OB FOR VOMITING x36. Coronavirus screen: bp Patient denies fever greater than 100.4F, cough, shortness of breath, or difficulty breathing. Proceed with normal triage process. Ebola Screen: No symptoms or risks identified at this time. Initial Sepsis Screen: Does the patient meet any 2 criteria? No. Patient's initial sepsis screen is negative. Does the patient have a suspected source of infection? No. Patient's initial sepsis screen is negative. Risk Assessment: Do you want to hurt yourself or someone else? Patient reports no desire to harm self or others. 09:37 Method Of Arrival: Ambulatory bp 09:37 Acuity: ALFONZO 3 bp 09:45 Onset of symptoms was January 27, 2020 at 06:00. bp Triage Assessment: 09:40 General: Appears in no apparent distress. comfortable, Behavior is cooperative, bp appropriate for age, anxious. Pain: Denies pain. EENT: No deficits noted. Neuro: No deficits noted. Cardiovascular: No deficits noted. Respiratory: No deficits noted. GI: Reports nausea, vomiting. : No signs and/or symptoms were reported regarding the genitourinary system. Derm: No deficits noted. Musculoskeletal: No deficits noted. 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 - Social history:: Smoking status: Patient denies any tobacco usage or history of. Screenin:41 Abuse screen: Denies threats or abuse. Denies injuries from another. Nutritional bp screening: No deficits noted. Tuberculosis screening: No symptoms or risk factors identified. Fall Risk None identified. Assessment: 09:41 General: SEE TRIAGE NOTE. GI: Abdomen is non-distended. bp 10:55 Reassessment: D/C ON HOLD FOR IVF INFUSION. bp 12:00 Reassessment: Patient states symptoms have improved. bp 12:27 Reassessment: IVF COMPLETED. PT D/C HOME AMBULATORY, DX WITH HYPEREMESIS GRAVIDUM. bp Vital Signs: 09:37 BP 125 / 75; Pulse 73; Resp 16; Temp 97.6; Pulse Ox 99% ; Weight 88.9 kg; Height 5 ft. bp 5 in. (165.10 cm); 10:03 BP 107 / 61; Pulse 68; Resp 16; Pulse Ox 98% ; bp 10:55 BP 107 / 54; Pulse 64; Resp 16; Pulse Ox 100% ; bp 12:25 BP 95 / 82; Pulse 64; Resp 16; Temp 97.8; Pulse Ox 100% ; bp 09:37 Body Mass Index 32.62 (88.90 kg, 165.10 cm) bp ED Course: 09:26 Patient arrived in ED. mr 09:29 Karl Pena MD is Attending Physician. lennie 09:30 Gurwinder Monroy, MARITA is Primary Nurse. bp 09:39 Triage completed. bp 09:40 Arm band placed on. bp 09:41 Patient has correct armband on for positive identification. Bed in low position. Call bp light in reach. Side rails up X2. 09:45 Inserted saline lock: 20 gauge in left antecubital area, using aseptic technique. Blood bp collected. 09:50 Urine collected: clean catch specimen, cloudy, tre colored. [email or web address] 12:27 No provider procedures requiring assistance completed. IV discontinued, intact, bp bleeding controlled, No redness/swelling at site. Pressure dressing applied. Administered Medications: 09:45 Drug: NS 0.9% 1000 ml Route: IV; Rate: 1 bolus; Site: left antecubital; bp 12:26 Follow up: IV Status: Completed infusion; IV Intake: 1000ml bp 09:45 Drug: Zofran (Ondansetron) 4 mg Route: IVP; Site: left antecubital; bp 10:03 Follow up: Response: Nausea is decreased bp 09:52 Drug: NS 0.9% 1000 ml Route: IV; Rate: 1 bolus; Site: left antecubital; bp 12:26 Follow up: IV Status: Completed infusion; IV Intake: 1000ml bp 10:52 Drug: Rocephin 1 grams Route: IV; Rate: per protocol; Site: left antecubital; bp 12:26 Follow up: IV Status: Completed infusion; IV Intake: 50ml bp Intake: 12:26 IV: 50ml; Total: 50ml. bp 12:26 IV: 1000ml; Total: 1050ml. bp 12:26 IV: 1000ml; Total: 2050ml. bp Outcome: 10:48 Discharge ordered by . lennie 12:27 Discharged to home ambulatory. bp 12:27 Condition: stable 12:27 Discharge instructions given to patient, Instructed on discharge instructions, follow up and referral plans. medication usage, Demonstrated understanding of instructions, follow-up care, medications, Prescriptions given X 3. 12:43 Patient left the ED. bp Signatures: Jose Antonio Mary1 Karl Pena MD MD cha Rivera, Mary mr Peltier, Brian, RN RN bp
--- NOTE | 2020-01-28 10:50 | EDPHYS ---
Physician Documentation [facility] Name: Jenniffer Barragan Age: 29 yrs Sex: Female : 1990 Arrival Date: 01/28/2020 Time: 09:26 Bed 13 Private MD: BRIANDA Physician Karl Pena HPI: 01/27 09:51 This 29 yrs old Female presents to ER via Ambulatory with complaints of 12 lennie wks , Vomiting. 09:51 The patient presents to the emergency department with nausea, vomiting, that is lennie continuous. Onset: The symptoms/episode began/occurred 2 day(s) ago. Possible causes: . The symptoms are aggravated by nothing. The symptoms are alleviated by nothing. remaining still. Associated signs and symptoms: The patient has no apparent associated signs or symptoms. Severity of symptoms: At their worst the symptoms were mild in the emergency department the symptoms are unchanged. The patient has experienced similar episodes in the past, a few times. 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 - Social history:: Smoking status: Patient denies any tobacco usage or history of. ROS: 09:52 Constitutional: Negative for fever, chills, and weight loss, Eyes: Negative for injury, lennie pain, redness, and discharge, ENT: Negative for injury, pain, and discharge, Neck: Negative for injury, pain, and swelling, Cardiovascular: Negative for chest pain, palpitations, and edema, Respiratory: Negative for shortness of breath, cough, wheezing, and pleuritic chest pain, Back: Negative for injury and pain, : Negative for injury, bleeding, discharge, and swelling, MS/Extremity: Negative for injury and deformity, Skin: Negative for injury, rash, and discoloration, Neuro: Negative for headache, weakness, numbness, tingling, and seizure, Psych: Negative for depression, anxiety, suicide ideation, homicidal ideation, and hallucinations, Allergy/Immunology: Negative for hives, rash, and allergies, Endocrine: Negative for neck swelling, polydipsia, polyuria, polyphagia, and marked weight changes. 09:52 Abdomen/GI: Positive for nausea and vomiting, abdominal distension, of the right upper quadrant, left upper quadrant, right lower quadrant and left lower quadrant. Exam: 09:52 Constitutional: This is a well developed, well nourished patient who is awake, alert, lennie and in no acute distress. Head/Face: Normocephalic, atraumatic. Eyes: Pupils equal round and reactive to light, extra-ocular motions intact. Lids and lashes normal. Conjunctiva and sclera are non-icteric and not injected. Cornea within normal limits. Periorbital areas with no swelling, redness, or edema. ENT: Nares patent. No nasal discharge, no septal abnormalities noted. Tympanic membranes are normal and external auditory canals are clear. Oropharynx with no redness, swelling, or masses, exudates, or evidence of obstruction, uvula midline. Mucous membranes moist. Neck: Trachea midline, no thyromegaly or masses palpated, and no cervical lymphadenopathy. Supple, full range of motion without nuchal rigidity, or vertebral point tenderness. No Meningismus. Chest/axilla: Normal chest wall appearance and motion. Nontender with no deformity. No lesions are appreciated. Cardiovascular: Regular rate and rhythm with a normal S1 and S2. No gallops, murmurs, or rubs. Normal PMI, no JVD. No pulse deficits. Respiratory: Lungs have equal breath sounds bilaterally, clear to auscultation and percussion. No rales, rhonchi or wheezes noted. No increased work of breathing, no retractions or nasal flaring. Back: No spinal tenderness. No costovertebral tenderness. Full range of motion. Skin: Warm, dry with normal turgor. Normal color with no rashes, no lesions, and no evidence of cellulitis. MS/ Extremity: Pulses equal, no cyanosis. Neurovascular intact. Full, normal range of motion. Neuro: Awake and alert, GCS 15, oriented to person, place, time, and situation. Cranial nerves II-XII grossly intact. Motor strength 5/5 in all extremities. Sensory grossly intact. Cerebellar exam normal. Normal gait. Psych: Awake, alert, with orientation to person, place and time. Behavior, mood, and affect are within normal limits. 09:52 Abdomen/GI: Inspection: distension, Bowel sounds: normal, Palpation: nontender, Liver: no appreciated palpable abnormalities, Hernia: not appreciated. Vital Signs: 09:37 BP 125 / 75; Pulse 73; Resp 16; Temp 97.6; Pulse Ox 99% ; Weight 88.9 kg; Height 5 ft. bp 5 in. (165.10 cm); 10:03 BP 107 / 61; Pulse 68; Resp 16; Pulse Ox 98% ; bp 10:55 BP 107 / 54; Pulse 64; Resp 16; Pulse Ox 100% ; bp 12:25 BP 95 / 82; Pulse 64; Resp 16; Temp 97.8; Pulse Ox 100% ; bp 09:37 Body Mass Index 32.62 (88.90 kg, 165.10 cm) bp MDM: 09:37 Patient medically screened. [facility] 09:53 Data reviewed: vital signs, nurses notes, lab test result(s). [facility] 01/27 09:30 Order name: Quantitative Hcg; Complete Time: 10:44 [facility] 01/27 09:30 Order name: Abo/rh Typing; Complete Time: 10:45 [facility] 01/27 09:30 Order name: Basic Metabolic Panel; Complete Time: 10:44 [facility] 01/27 09:30 Order name: CBC with Diff; Complete Time: 10:44 [facility] 01/27 09:30 Order name: Lipase; Complete Time: 10:45 [facility] 01/27 09:30 Order name: LFT's; Complete Time: 10:44 [facility] 01/27 09:30 Order name: Urine Test (obtain specimen); Complete Time: 09:52 [facility] 01/27 09:30 Order name: IV Saline Lock; Complete Time: 09:49 [facility] 01/27 10:07 Order name: Urine Dipstick--Ancillary (enter results); Complete Time: 10:44 sd 01/27 10:07 Order name: Urine --Ancillary (enter results); Complete Time: 10:44 sd 01/27 09:30 Order name: Labs collected and sent; Complete Time: 09:49 [facility] 01/27 09:30 Order name: NPO; Complete Time: 09:49 [facility] 01/27 09:30 Order name: Urine Dipstick-Ancillary (obtain specimen); Complete Time: 09:52 [facility] Administered Medications: 09:45 Drug: NS 0.9% 1000 ml Route: IV; Rate: 1 bolus; Site: left antecubital; bp 12:26 Follow up: IV Status: Completed infusion; IV Intake: 1000ml bp 09:45 Drug: Zofran (Ondansetron) 4 mg Route: IVP; Site: left antecubital; bp 10:03 Follow up: Response: Nausea is decreased bp 09:52 Drug: NS 0.9% 1000 ml Route: IV; Rate: 1 bolus; Site: left antecubital; bp 12:26 Follow up: IV Status: Completed infusion; IV Intake: 1000ml bp 10:52 Drug: Rocephin 1 grams Route: IV; Rate: per protocol; Site: left antecubital; bp 12:26 Follow up: IV Status: Completed infusion; IV Intake: 50ml bp Disposition: 01/28/20 10:48 Discharged to Home. Impression: Hyperemesis gravidarum with metabolic disturbance, Vomiting, Urinary tract infection, site not specified. - Condition is Stable. - Discharge Instructions: Hyperemesis Gravidarum, Morning Sickness, [id number], Nausea and Vomiting, Adult, Morning Sickness, Nausea and Vomiting, Adult, [id number]-[id number]. - Prescriptions for Diclegis 10- 10 mg Oral tablet,delayed release (DR/EC) - take 1 tablet by ORAL route 3 times per day and 2 tablets at bedtime; 60 tablet. Zofran 4 mg Oral Tablet - take 1 tablet by ORAL route every 12 hours As needed; 20 tablet. Keflex 500 mg Oral Capsule - take 1 capsule by ORAL route every 12 hours for 7 days; 14 capsule. - Medication Reconciliation Form, Thank You Letter, Antibiotic Education, Prescription Opioid Use form. - Follow up: Private Physician; When: As needed; Reason: Recheck today's complaints, Continuance of care, Re-evaluation by your physician. - Problem is new. - Symptoms have improved. Signatures: Dispatcher [employer] EDOK Karl Pena MD MD cha Peltier, Brian, RN RN bp Corrections: (The following items were deleted from the chart) 12:43 10:48 01/28/2020 10:48 Discharged to Home. Impression: Hyperemesis gravidarum with bp metabolic disturbance; Vomiting; Urinary tract infection, site not specified. Condition is Stable. Discharge Instructions: Hyperemesis Gravidarum, Morning Sickness, [id number], Nausea and Vomiting, Adult, Morning Sickness, Nausea and Vomiting, Adult, Ovxr-oz-Yfes. Prescriptions for Diclegis 10-10 mg Oral tablet,delayed release (DR/EC) - take 1 tablet by ORAL route 3 times per day and 2 tablets at bedtime; 60 tablet, Zofran 4 mg Oral Tablet - take 1 tablet by ORAL route every 12 hours As needed; 20 tablet. and Forms are Medication Reconciliation Form, Thank You Letter, Antibiotic Education, Prescription Opioid Use. Follow up: Private Physician; When: As needed; Reason: Recheck today's complaints, Continuance of care, Re-evaluation by your physician. Problem is new. Symptoms have improved. lennie
[2020-01-28] MEDS ORDERED: CEFTRIAXONE/SWI 1gm 1 GM/10 ML SYR ONE (10:54)
[2020-01-28 12:56] VITALS: O2SAT 100
[2020-01-28 12:58] VITALS: BP 95/82; TEMP 97.8
== END 2020-01-28 12:43 | disposition home or self-care (01) ==
LOC: ER 09:23
DX: O21.1 Hyperemesis gravidarum with metabolic disturbance (principal); O23.41 Unspecified infection of urinary tract in pregnancy, first trimester; Z3A.12 12 weeks gestation of pregnancy; Z88.5 Allergy status to narcotic agent; Z88.8 Allergy status to other drugs, medicaments and biological substances
CPT/HCPCS: 96365; 96361; 85025; 80048; 36415; 86900; 81025; 86901; 80076; 84702; 81003; 83690; 96375; 99284; 96366; J0696; J7030 ×2; J2405

== ENCOUNTER 2020-02-16 18:07 | Emergency (ER) | payer OTHER ==
--- OUTSIDE RECORDS SUMMARY | 2020-02-16 18:10 | XMS REPORT ---
:1990 Author Organization [facility] t Address [address] [place] [address] Dr. Lee [address] [place] [id number] Care Team Providers Name Role Phone Unavailable Unavailable Unavailable Problems Condition Condition Condition Status Onset Resolution Last Treatin g Comments Name Details Category Date Date Treatment Clinician Date Encounter Encounter Problem Active for for insertion insertion of of intrauterin intrauterin e e contracepti contracepti ve device ve device Irritable Irritable Problem Active bowel bowel syndrome, syndrome, unspecified unspecified type type Other Other Problem Active immediate immediate hemorrhage hemorrhage Fever, Fever, Problem Active unspecified unspecified fever cause fever cause Exposure to Exposure to Problem Active the flu the flu IUD IUD Problem Active surveillanc surveillanc e e Well woman Well woman Problem Active exam with exam with routine routine gynecologic gynecologic al exam al exam Atypical Atypical Problem Active squamous squamous cells of cells of undetermine undetermine d d significanc significanc e on e on cytologic cytologic smear of smear of cervix cervix (ASC-US) (ASC-US) Cervical Cervical Problem Active high risk high 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 Clinician (SIG) Name Name Multi Adult Multi Adult Yes Yasmine as Gummies Gummies [place] directed Vitamin Vitamin Yes Yasmine 2 tablets B-12 B-12 [place] Immunizations Ordered Immunization Name Filled Immunization Name Date Sta tus Comments Flucelvax - single dose Flucelvax - single dose 2019-12-15 Comple dl syringe syringe 00:00:00 Flucelvax - multidose Flucelvax - multidose 2018-08-17 Completed vial vial 00:00:00 Encounters Start End Encounter Admission Attending Care Care Encounter Date/Time Date/Time Type Type Clinicians Facility Department ID 2019-12-15 2019-12-15 [id number] 10:00:00 10:00:00 [facility] 2019-07-27 2019-07-27 [id number] 15:15:00 15:15:00 [facility] 2019-07-18 2019-07-18 [facility] [id number] 15:15:00 15:15:00 [facility] 2019-07-13 2019-07-13 [facility] [id number] 10:30:00 10:30:00 [facility] 2018-12-08 2018-12-08 [facility] [id number] 15:00:00 15:00:00 [facility] 2018-08-17 2018-08-17 [facility] [id number] 16:00:00 16:00:00 [facility] 2018-04-20 2018-04-20 [facility] [id number] 14:45:00 14:45:00 [facility] 2018-04-09 2018-04-09 [facility] [id number] 10:01:00 10:01:00 [facility] 2018-04-07 2018-04-07 [facility] [id number] 15:00:00 15:00:00 [facility] 2018-03-19 2018-03-19 [facility] [id number] 10:00:00 10:00:00 [facility] 2018-03-02 2018-03-02 [facility] [id number] 09:30:00 09:30:00 [facility]
--- OUTSIDE RECORDS SUMMARY | 2020-02-16 18:10 | XMS REPORT ---
:1990 Author Organization [employer] Care Team Providers Name Role Phone Yasmine Rasheed Provider Role Unavailable Allergies, Adverse Reactions, Alerts Substance Reaction Event Type Phenergan Info Not Available Drug Allergy Hydrocodone Bitartrate Info Not Available Drug Allergy Problems Problem Type Condition Code Onset Dates Condition Statu s Problem Other immediate O72.1 A ctive hemorrhage Problem Encounter for insertion of Z30.430 A ctive intrauterine contraceptive device Assessment Encounter for immunization Z23 A ctive Assessment Viral URI J06.9 Active Problem Atypical squamous cells of R87.610 A ctive undetermined significance on cytologic smear of cervix (ASC-US) Problem IUD surveillance Z30.431 Active Problem Cervical high risk human R87.810 Act [place] papillomavirus (HPV) DNA test positive Problem Fever, unspecified fever cause R50.9 Active Problem Irritable bowel syndrome, K58.9 Ac tive unspecified type Problem Well woman exam with routine Z01.419 Active gynecological exam Problem Exposure to the flu Z20.828 Active Medications Medication Code Code Instructions Start End Status Dosage System Date Date Vitamin B-12 [facility] 15771214788 5000 MCG Active 2 tabl ets Sublingual Once a day Multi Adult [facility] 91957681493 - Orally Active as dire cted Gummies Results Name Result Date Reference Range Unit Abnormali ty Flag FLU TEST A/B ----A Neg 20191215 ----B Neg 20191215 Immunizations Vaccine Administration Date Flucelvax - single dose syringe Dec 15, 2019 Summary Purpose [employer] Submission
--- OUTSIDE RECORDS SUMMARY | 2020-02-16 18:10 | XMS REPORT ---
[...] Z30.430 A ctive intrauterine contraceptive device Assessment Atypical squamous cells of R87.610 A ctive undetermined significance on cytologic smear of cervix (ASC-US) Assessment Cervical high risk human R87.810 Act [place] papillomavirus (HPV) DNA test positive Problem Atypical squamous cells of R87.610 A [...] End Status Dosage System Date Date Tamiflu [facility] 92683838794 75 MG Orally Dec 08, Active 1 capsu le Twice a day 2018 Mirena (52 [facility] 04467838836 20 MCG/24HR Active not d efined MG) Intrauterine Multi Adult [facility] 41988064590 - Orally Active as dire cted Gummies Dibucaine [facility] 07593957610 1 % Externally April 09, Active 1 application Three times a 2017 to affecte d day area as needed Vitamin B-12 [facility] 67927840847 5000 MCG Active 2 tabl ets Sublingual Once a day Results No Known Results Summary Purpose eClinicalWorks Submission
[2020-02-16] MEDS ORDERED: NA CHLORIDE 0.9% 1,000 ML ONE (18:59)
[2020-02-16 19:16] LABS: Absolute Lymphocytes (CBC) 1.7 K/uL (0.7-4.9); Basophils % 0.3 % (0-1.3); Hematocrit 33.7 % (36.0-45.0); Lymphocytes % 20.7 % (15.3-44.8); MPV 9.8 fL (7.6-11.3); RBC Red Blood Cell Count 3.73 M/uL (3.86-4.86)
[2020-02-16 19:38] LABS: ALT/SGPT 19 U/L (12-78); AST/SGOT 13 U/L (15-37); Albumin 3.2 g/dL (3.4-5.0); Alkaline Phosphatase 52 U/L (45-117); BUN Blood Urea Nitrogen 7 mg/dL (7-18); Bicarbonate 25 mmol/L (21-32); Bilirubin Direct < 0.1 mg/dL (0-0.2); Bilirubin Total 0.1 mg/dL (0.2-1.0); Glucose Level 99 mg/dL (74-106); Lipase 88 U/L (73-393); Potassium 3.6 mmol/L (3.5-5.1); Protein, Total 7.2 g/dL (6.4-8.2); Sodium Level 139 mmol/L (136-145)
[2020-02-16] MEDS ORDERED: ACETAMINOPHEN 325 MG TABLET ONE (19:48)
[2020-02-16 20:11] LABS: Urine Blood NEGATIVE (NEG); Urine Glucose NEGATIVE (NEG); Urine Protein NEGATIVE (NEG)
--- NOTE | 2020-02-16 20:13 | EDPHYS ---
Physician Documentation [facility] Name: Jenniffer Barragan Age: 29 yrs Sex: Female : 1990 Arrival Date: 02/16/2020 Time: 18:09 Bed 16 Private MD: Yasmine Rasheed ED Physician Karl Pena HPI: 02/15 18:50 This 29 yrs old Female presents to ER via Ambulatory with complaints of cp Constipation, dehydration. 18:50 The patient presents to the emergency department with headache, dizziness and cp constipation. 18:50 The estimated gestational age is 14 weeks. cp 18:50 course: care: private OB physician, Leakage of Fluid: none cp appreciated. 18:50 Associated signs and symptoms: Pertinent negatives: diarrhea, dysuria, fever, ruptured cp membranes, vaginal bleeding, vomiting. 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 - Social history:: Smoking status: Patient denies any tobacco usage or history of. ROS: 19:00 Constitutional: Negative for body aches, chills, fever, poor PO intake. cp 19:00 Eyes: Negative for injury, pain, redness, and discharge. cp 19:00 ENT: Negative for drainage from ear(s), ear pain, sore throat, difficulty swallowing, difficulty handling secretions. 19:00 Cardiovascular: Negative for chest pain. 19:00 Respiratory: Negative for cough, shortness of breath, wheezing. 19:00 Abdomen/GI: Positive for constipation, rectal pain, Negative for abdominal pain, vomiting, diarrhea. 19:00 : Negative for urinary symptoms, vaginal bleeding. 19:00 All other systems are negative. Exam: 19:05 Constitutional: The patient appears in no acute distress, alert, awake, comfortable, cp non-toxic, well developed, well nourished. 19:05 Head/Face: Normocephalic, atraumatic. cp 19:05 Eyes: Periorbital structures: appear normal, Conjunctiva: normal, no exudate, no injection, Lids and lashes: appear normal, bilaterally. 19:05 ENT: External ear(s): are unremarkable, Nose: is normal, Mouth: Lips: moist, Oral mucosa: pink and intact, moist, Posterior pharynx: is normal, airway is patent, no erythema, no exudate. 19:05 Chest/axilla: Inspection: normal. 19:05 Cardiovascular: Rate: normal. 19:05 Respiratory: the patient does not display signs of respiratory distress, Respirations: normal, no use of accessory muscles. 19:05 Abdomen/GI: Inspection: abdomen appears normal, Bowel sounds: active, all quadrants, Palpation: abdomen is soft and non-tender, in all quadrants, rebound tenderness, is not appreciated, involuntary guarding, is not appreciated. Vital Signs: 18:29 BP 123 / 68; Pulse 96; Resp 18; Temp 98.0; Pulse Ox 99% on R/A; ph 18:35 BP 122 / 65 Supine; Pulse 85; ph 18:35 BP 124 / 72 Sitting; Pulse 101; ph 18:35 BP 119 / 68 Standing; Pulse 97; ph 19:10 BP 116 / 61; Pulse 72; Resp 18; Pulse Ox 100% ; ll1 20:00 BP 105 / 80; Pulse 79; Resp 16; Pulse Ox 100% on R/A; vc 18:35 pt c/o dizziness upon sitting up ph MDM: 18:21 Patient medically screened. cp 19:00 Differential diagnosis: bowel impaction, fecal impaction, anal fissure, hemorrhoids, cp electrolyte abnormality, dehydration. 20:11 Data reviewed: vital signs, nurses notes, lab test result(s), and as a result, I will cp discharge patient. 02/15 18:46 Order name: Basic Metabolic Panel; Complete Time: 19:41 02/15 19:41 Interpretation: Normal except: CL 108. 02/15 18:46 Order name: CBC with Diff; Complete Time: 19:41 02/15 19:42 Interpretation: Normal except: RBC 3.73; HGB 11.6; HCT 33.7. 02/15 18:46 Order name: Creatinine for Radiology; Complete Time: 19:41 02/15 18:46 Order name: Hepatic Function; Complete Time: 19:41 cp 02/15 19:42 Interpretation: Normal except: AST 13; BILIT 0.1; ALB 3.2; GLOB 4.0; A/G 0.8. 02/15 18:46 Order name: Lipase; Complete Time: 19:41 cp 02/15 18:46 Order name: Magnesium; Complete Time: 19:41 02/15 18:46 Order name: IV Saline Lock; Complete Time: 18:51 cp 02/15 18:46 Order name: Labs collected and sent; Complete Time: 18:52 cp 02/15 18:46 Order name: FHT's; Complete Time: 19:33 cp 02/15 19:58 Order name: Urine Dipstick--Ancillary (enter results) [facility] 02/15 19:58 Order name: Urine --Ancillary (enter results) [facility] 02/15 18:46 Order name: Urine Dipstick-Ancillary (obtain specimen); Complete Time: 19:45 02/15 18:46 Order name: Urine Test (obtain specimen); Complete Time: 19:45 02/15 19:52 Order name: PO challenge; Complete Time: 20:19 cp Administered Medications: 19:00 Drug: NS 0.9% 1000 ml Route: IV; Rate: 1 bolus; Site: left antecubital; ll1 20:00 Follow up: IV Status: Completed infusion; IV Intake: 1000ml vc 19:45 Drug: Tylenol 650 mg Route: PO; vc 20:19 Follow up: Response: No adverse reaction vc Disposition: 02/16 11:04 Co-signature as Attending Physician, Karl Pena MD I agree with the assessment and lennie plan of care. Disposition: 02/16/20 20:12 Discharged to Home. Impression: related conditions, unspecified, Hemorrhoids in , Constipation, unspecified. - Condition is Stable. - Discharge Instructions: Constipation, Adult, High-Fiber Diet, Hemorrhoids. - Prescriptions for Proctofoam HC 1- 1 % Rectal foam - insert 1 applicatorful by RECTAL route 3-4 times daily As needed; 30 gram. - Medication Reconciliation Form, Thank You Letter, Antibiotic Education, Prescription Opioid Use form. - Follow up: Private Physician; When: 2 - 3 days; Reason: Recheck today's complaints. - Problem is new. - Symptoms have improved. - Notes: May take over the counter Magnesium Citrate as directed for constipation Signatures: Dispatcher [employer] EDMS Karl Pena MD MD cha Hall, Patricia, RN RN ph Karl Jaime PA PA cp Kierra Alcaraz RN RN Cheyenne White RN RN ll1 Corrections: (The following items were deleted from the chart) 02/15 20:34 20:12 02/16/2020 20:12 Discharged to Home. Impression: related conditions, vc unspecified; Hemorrhoids in ; Constipation, unspecified. Condition is Stable. Forms are Medication Reconciliation Form, Thank You Letter, Antibiotic Education, Prescription Opioid Use. Follow up: Private Physician; When: 2 - 3 days; Reason: Recheck today's complaints. Problem is new. Symptoms have improved. cp
--- NOTE | 2020-02-16 20:13 | ER ---
Nurse's Notes [facility] Name: Jenniffer Barragan Age: 29 yrs Sex: Female : 1990 Arrival Date: 02/16/2020 Time: 18:09 Bed 16 Private MD: Yasmine Rasheed Diagnosis: related conditions, unspecified;Hemorrhoids in ;Constipation, unspecified Presentation: 02/15 18:29 Chief complaint: Patient states: 14 weeks , has hyperemesis gravidarum, OB ph prescribed 8mg Zofran 3 x day, diclegis and reglan, pt now has constipation, last BM appprox 1 week ago, states, " I did an enema today but it didn't help so I dis-impacted myself, I already have hemorrhoids from IBS but now they are very painful and swollen and I think I'm dehydrated from the meds." Reports headache, dizziness, and dry mouth, denies fever or recent illness. Coronavirus screen: Patient denies a cough. Patient denies shortness of breath or difficulty breathing. Patient denies measured and/or subjective temperature greater than 100.4F prior to today's visit. Patient denies travel on a cruise ship or to a country the [facility]NOTE 2[place] currently lists as an affected area. Patient denies contact with known and/or suspected case of COVID-19. Ebola Screen: No symptoms or risks identified at this time. Initial Sepsis Screen: Does the patient meet any 2 criteria? No. Patient's initial sepsis screen is negative. Does the patient have a suspected source of infection? No. Patient's initial sepsis screen is negative. Risk Assessment: Do you want to hurt yourself or someone else? Patient reports no desire to harm self or others. Onset of symptoms was February 16, 2020. 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 - Social history:: Smoking status: Patient denies any tobacco usage or history of. Screenin:35 Abuse screen: Denies threats or abuse. Nutritional screening: No deficits noted. ll1 Tuberculosis screening: No symptoms or risk factors identified. Fall Risk IV access (20 points). Gait- Weak (10 pts.). Total Tellez Fall Scale indicates Low Risk Score (25-44 pts). Fall prevention measures have been instituted. Side Rails Up X 2 Frequent Obs/Assesments occuring As available Patient and Family Educated on Fall Prevention Program and strategies. Assessment: 18:36 General: Appears in no apparent distress. Behavior is calm, cooperative. Pain: ll1 Complains of pain in rectal Quality of pain is described as burning, Is intermittent. Neuro: Level of Consciousness is awake, alert, obeys commands, Oriented to person, place, time, situation, Appropriate for age Hotel Lobby Concierge are equal bilaterally Moves all extremities. Full function Gait is steady, Speech is normal, Facial symmetry appears normal, Reports diplopia. Cardiovascular: No deficits noted. Respiratory: No deficits noted. GI: Abdomen is flat, Bowel sounds present X 4 quads. Abd is soft and non tender Reports constipation, nausea. : Reports rectal pain from Hemoriods. 19:30 Reassessment: Patient appears in no apparent distress at this time. Patient and/or vc family updated on plan of care and expected duration. Pain level reassessed. Patient denies pain at this time. 20:28 Reassessment: Patient appears in no apparent distress at this time. Patient and/or vc family updated on plan of care and expected duration. Pain level reassessed. Patient denies pain at this time. Patient states feeling better. Patient states symptoms have improved. Vital Signs: 18:29 BP 123 / 68; Pulse 96; Resp 18; Temp 98.0; Pulse Ox 99% on R/A; ph 18:35 BP 122 / 65 Supine; Pulse 85; ph 18:35 BP 124 / 72 Sitting; Pulse 101; ph 18:35 BP 119 / 68 Standing; Pulse 97; ph 19:10 BP 116 / 61; Pulse 72; Resp 18; Pulse Ox 100% ; ll1 20:00 BP 105 / 80; Pulse 79; Resp 16; Pulse Ox 100% on R/A; vc 18:35 pt c/o dizziness upon sitting up ph Vitals: 19:34 Heart Tones 157. vc ED Course: 18:09 Patient arrived in ED. am2 18:09 Yasmine Rasheed FNP-C is Private Physician. am2 18:11 Karl Ja[facility]. cp 18:11 Gio Chavarria MD is Attending Physician. cp 18:13 Cheyenne Walker RN is Primary Nurse. ll1 18:34 Triage completed. ph 18:35 Arm band placed on Patient placed in an exam room. ph 18:36 Patient has correct armband on for positive identification. Bed in low position. Call ll1 light in reach. Side rails up X 1. 19:03 Inserted saline lock: 20 gauge in left antecubital area, using aseptic technique. Blood ll1 collected. 19:17 Primary Nurse role handed off by Cheyenne Walker RN vc 19:17 Kierra Alcaraz RN is Primary Nurse. vc 20:05 Karl Pena MD is Attending Physician. cp 20:28 No provider procedures requiring assistance completed. IV discontinued, intact, vc bleeding controlled, No redness/swelling at site. Pressure dressing applied. Administered Medications: 19:00 Drug: NS 0.9% 1000 ml Route: IV; Rate: 1 bolus; Site: left antecubital; ll1 20:00 Follow up: IV Status: Completed infusion; IV Intake: 1000ml vc 19:45 Drug: Tylenol 650 mg Route: PO; vc 20:19 Follow up: Response: No adverse reaction vc Intake: 20:00 IV: 1000ml; Total: 1000ml. vc Outcome: 20:12 Discharge ordered by . cp 20:33 Discharged to home ambulatory. vc 20:33 Condition: good 20:33 Discharge instructions given to patient, Instructed on discharge instructions, follow up and referral plans. medication usage, Demonstrated understanding of instructions, follow-up care, medications, Prescriptions given X 1. 20:34 Patient left the ED. vc Signatures: Samantha Smith RN RN Karl Jaime PA PA Natasha Garrido am2 Kierra Alcaraz RN RN vc Cheyenne Walker RN RN ll1
[2020-02-16 20:41] VITALS: TEMP 98
[2020-02-16 20:44] VITALS: O2SAT 100
[2020-02-16 20:45] VITALS: BP 105/80
== END 2020-02-16 20:34 | disposition home or self-care (01) ==
LOC: ER 18:07
DX: O22.42 Hemorrhoids in pregnancy, second trimester (principal); O26.892 Other specified pregnancy related conditions, second trimester; Z3A.14 14 weeks gestation of pregnancy; Z88.5 Allergy status to narcotic agent; Z88.8 Allergy status to other drugs, medicaments and biological substances
CPT/HCPCS: 85025; 80048; 36415; 83735; 81025; 80076; 81003; 83690; 96360; 99284; J7030

== ENCOUNTER 2020-03-11 01:50 | Emergency (ER) | payer OTHER ==
--- OUTSIDE RECORDS SUMMARY | 2020-03-11 01:53 | XMS REPORT ---
:1990 Author Organization [facility] t Address [address] [place] [address] Dr. Lee [address] [place] [id number] Care Team Providers Name Role Phone Unavailable [...] Multi Adult Yes Yasmine as Gummies Gummies [place] directed Vitamin Vitamin Yes Yasmine 2 tablets B-12 B-12 [place] Immunizations Ordered Immunization Name Filled Immunization Name Date Sta tus Comments Flucelvax - single dose Flucelvax - single dose 2019-12-15 Comple dl syringe syringe 00:00:00 Flucelvax - multidose Flucelvax - multidose 2018-08-17 Completed vial vial 00:00:00 Encounters Start End Encounter Admission Attending Care Care Encounter Date/Time Date/Time Type Type Clinicians Facility Department ID 2019-12-15 2019-12-15 [id number] 10:00:00 10:00:00 [facility] 2019-07-27 2019-07-27 [id number] 15:15:00 15:15:00 [facility] 2019-07-18 2019-07-18 [facility] [id number] 15:15:00 15:15:00 [facility] 2019-07-13 2019-07-13 [id number] 10:30:00 10:30:00 [facility] 2018-12-08 2018-12-08 [id number] 15:00:00 15:00:00 [facility] 2018-08-17 2018-08-17 [id number] 16:00:00 16:00:00 [facility] 2018-04-20 2018-04-20 [facility] [id number] 14:45:00 14:45:00 [facility] 2018-04-09 2018-04-09 [facility] [id number] 10:01:00 10:01:00 [facility] 2018-04-07 2018-04-07 [facility] [id number] 15:00:00 15:00:00 [facility] 2018-03-19 2018-03-19 [id number] 10:00:00 10:00:00 [facility] 2018-03-02 2018-03-02 [facility] [id number] 09:30:00 09:30:00 [facility]
--- OUTSIDE RECORDS SUMMARY | 2020-03-11 01:53 | XMS REPORT ---
[...] End Status Dosage System Date Date Tamiflu [facility] [id number] 75 MG Orally Dec 08, Active 1 capsu le Twice a day 2018 Mirena (52 [facility] [id number] 20 MCG/24HR Active not d efined MG) Intrauterine Multi Adult [facility] [id number] - Orally Active as dire cted Gummies Dibucaine [facility] [id number] 1 % Externally April 09, Active 1 application Three times a 2017 to affecte d day area as needed Vitamin B-12 [facility] [id number] 5000 MCG Active 2 tabl ets Sublingual Once a day Results No Known Results Summary Purpose eClinicalWorks Submission
--- OUTSIDE RECORDS SUMMARY | 2020-03-11 01:53 | XMS REPORT ---
[...] Status Dosage System Date Date Vitamin B-12 [facility] 13723072316 5000 MCG Active 2 tabl ets Sublingual Once a day Multi Adult [facility] [id number] - Orally Active as dire cted Gummies Results Name Result Date Reference Range Unit Abnormali ty Flag FLU TEST A/B ----A Neg [id number] ----B Neg [id number] Immunizations Vaccine Administration Date Flucelvax - single dose syringe Dec 15, 2019 Summary Purpose eClinicalWorks Submission
[2020-03-11] MEDS ORDERED: DIPHENHYDRAMINE 50 MG/ML VIAL ONE (03:53)
[2020-03-11] MEDS ORDERED: METOCLOPRAMIDE 10 MG/2mL INJ ONE (03:53)
[2020-03-11] MEDS ORDERED: NA CHLORIDE 0.9% 1,000 ML ONE (03:54)
[2020-03-11 04:21] LABS: Urine Blood NEGATIVE (NEG); Urine Glucose NEGATIVE (NEG); Urine Protein TRACE (NEG); Urine pH 8.5 (5.0-7.0)
[2020-03-11 04:25] LABS: Absolute Lymphocytes (CBC) 0.5 K/uL (0.7-4.9); Basophils % 0.5 % (0-1.3); Hematocrit 32.2 % (36.0-45.0); Lymphocytes % 5.6 % (15.3-44.8); MPV 9.8 fL (7.6-11.3); RBC Red Blood Cell Count 3.52 M/uL (3.86-4.86)
[2020-03-11 04:26] LABS: Protime INR 0.97
[2020-03-11 04:45] LABS: BUN Blood Urea Nitrogen 6 mg/dL (7-18); Bicarbonate 19 mmol/L (21-32); Glucose Level 107 mg/dL (74-106); Sodium Level 136 mmol/L (136-145)
[2020-03-11] MEDS ORDERED: CEFTRIAXONE/SWI 1gm 1 GM/10 ML SYR ONE (05:57)
--- NOTE | 2020-03-11 06:41 | ER ---
Nurse's Notes [facility] Name: Jenniffer Barragan Age: 29 yrs Sex: Female : 1990 Arrival Date: 03/11/2020 Time: 01:52 Bed 13 Private MD: Diagnosis: Headache;Fever, unspecified; related conditions, unspecified, second trimester Presentation: 03/11 02:03 Chief complaint: Patient states: Migraine since 0830 yesterday morning, vomiting, lp1 sweating, temp of 101.6 yesterday morning, Tylenol taken; States head is pounding, hard to focus due to pain; Patient is about 18 weeks . Coronavirus screen: Proceed with normal triage. Patient denies a cough. Patient denies shortness of breath or difficulty breathing. Patient reports a measured and/or subjective temperature greater than 100.4F. Patient denies travel on a cruise ship or to a country the [facility] currently lists as an affected area. Patient denies contact with known and/or suspected case of COVID-19. Ebola Screen: No symptoms or risks identified at this time. Risk Assessment: Do you want to hurt yourself or someone else? Patient reports no desire to harm self or others. Onset of symptoms was March 10, 2020. 02:03 Method Of Arrival: Ambulatory lp1 02:03 Acuity: ALFONZO 3 lp1 02:14 Initial Sepsis Screen: Does the patient meet any 2 criteria? No. Patient's initial lp1 sepsis screen is negative. Does the patient have a suspected source of infection? No. Patient's initial sepsis screen is negative. 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 - Social history:: Smoking status: Patient denies any tobacco usage or history of. Screenin:08 Abuse screen: Denies threats or abuse. Denies injuries from another. Nutritional lp1 screening: No deficits noted. Tuberculosis screening: No symptoms or risk factors identified. Fall Risk None identified. Assessment: 02:15 General: Appears in no apparent distress. Behavior is calm, cooperative, appropriate lp1 for age. Pain: Complains of pain in head Pain currently is 10 out of 10 on a pain scale. Neuro: Level of Consciousness is awake, alert, obeys commands, Oriented to person, place, time, situation. Cardiovascular: Patient's skin is warm and dry. Respiratory: Respiratory effort is even, unlabored, Denies cough, shortness of breath. GI: Abdomen is non-distended, Reports intolerance of fluids, intolerance of food, nausea, vomiting. : No signs and/or symptoms were reported regarding the genitourinary system. EENT: No signs and/or symptoms were reported regarding the EENT system. Derm: Skin is pink, warm \\T\\ dry. Musculoskeletal: No deficits noted. 03:15 Reassessment: Patient appears in no apparent distress at this time. No changes from lp1 previously documented assessment. 04:45 Reassessment: Patient is alert, oriented x 3, equal unlabored respirations, skin lp1 warm/dry/pink. Patient states "I feel significantly better"; Patient states symptoms have improved. 05:57 Reassessment: Patient states "my headache is almost 100% gone" Patient states feeling lp1 better. Patient states symptoms have improved. 06:52 Reassessment: Patient is alert, oriented x 3, equal unlabored respirations, skin lp1 warm/dry/pink. Demonstrates understanding of refusal of lumbar puncture by Dr. Gayle; understands to return if symptoms continue or worsen Patient denies pain at this time. Patient states feeling better. Patient states symptoms have improved. Vital Signs: 02:14 BP 122 / 69; Pulse 99; Resp 18; Temp 99.4(O); Pulse Ox 98% on R/A; Weight 91.63 kg (R); lp1 Height 5 ft. 8 in. (172.72 cm); Pain 10/10; 04:00 BP 98 / 79; Pulse 91; Resp 18; Pulse Ox 99% on R/A; lp1 05:00 BP 109 / 70; Pulse 88; Resp 18; Pulse Ox 100% on R/A; lp1 05:56 BP 110 / 57; Pulse 75; Resp 18; Pulse Ox 100% on R/A; lp1 06:53 BP 107 / 51; Pulse 69; Resp 18; Temp 98.7(O); Pulse Ox 100% on R/A; Pain 0/10; lp1 02:14 Body Mass Index 30.71 (91.63 kg, 172.72 cm) lp1 Vitals: 04:29 Heart Tones 154 bpm. lp1 Tammy Coma Score: 06:24 Eye Response: spontaneous(4). Verbal Response: oriented(5). Motor Response: obeys mh7 commands(6). Total: 15. ED Course: 01:52 Patient arrived in ED. cl3 02:05 Triage completed. lp1 02:06 Arm band placed on. lp1 03:11 Gabbie Mcgovern, RN is Primary Nurse. lp1 03:15 Patient has correct armband on for positive identification. Pulse ox on. NIBP on. lp1 03:30 Pelon Gayle MD is Attending Physician. mh7 04:00 Inserted saline lock: 20 gauge in left antecubital area, using aseptic technique. Blood lp1 collected. 04:00 First set of blood cultures drawn by me. lp1 04:43 Radiology exam delayed due to Patient unable to come to the CTdepartment at this time. kw1 ER is currently attempting to collect labs. 05:10 CT Head Brain wo Cont In Process Unspecified. EDMS 05:58 No provider procedures requiring assistance completed. lp1 06:46 Primary Nurse role handed off by Gabbie Mcgovern, RN tt3 06:50 Gabbie Mcgovern, RN is Primary Nurse. lp1 06:51 IV discontinued, No redness/swelling at site. Pressure dressing applied. lp1 Administered Medications: 04:00 Drug: NS 0.9% 1000 ml Route: IV; Rate: 125 ml/hr; Site: left antecubital; lp1 04:00 Drug: Reglan 10 mg Route: IVP; Site: left antecubital; lp1 05:06 Follow up: Response: Marked relief of symptoms lp1 04:00 Drug: Benadryl 50 mg Route: IVP; Site: left antecubital; lp1 05:06 Follow up: Response: Marked relief of symptoms lp1 05:56 Drug: Rocephin - (cefTRIAXone) 1 grams Route: IVPB; Infused Over: 30 mins; Site: left lp1 antecubital; Outcome: 06:52 AMA AMA form signed lp1 06:52 Condition: good 06:52 Instructed on follow up and referral plans. 06:54 Patient left the ED. lp1 Signatures: Dispatcher [employer] EDGabbie Hernandez RN RN lp1 Esther Conley1 Saskia Walker 3 Pelon Gayle MD MD 7 Ham Kelsey tt3 Corrections: (The following items were deleted from the chart) 02:15 02:03 Chief complaint: Patient states: Migraine since 0830 yesterday morning, vomiting, lp1 sweating, temp of 101.6 yesterday morning, Tylenol taken; States head is pounding, hard to focus due to pain lp1
--- NOTE | 2020-03-11 06:41 | EDPHYS ---
Physician Documentation [facility] Name: Jenniffer Barragan Age: 29 yrs Sex: Female : 1990 Arrival Date: 03/11/2020 Time: 01:52 Bed 13 Private MD: ED Physician Pelon Gayle HPI: 03/11 06:02 This 29 yrs old Female presents to ER via Ambulatory with complaints of mh7 Vomiting, Fever, Migraine. 06:11 The patient complains of pain to the forehead, left occipital area and right occipital mh7 area. The patient describes the headache as intermittent, throbbing. Onset: The symptoms/episode began/occurred yesterday. Associated signs and symptoms: Pertinent positives: fever, nausea, Photophobia vomiting, Pertinent negatives: altered mental status, dizziness, neck stiffness, paresthesias, rash, sinus congestion, sinus tenderness, vision changes, vision loss, weakness, vertigo. Severity of symptoms: At its worst the pain was moderate, earlier today, in the emergency department the pain is unchanged. Headache History: The patient has had previous headaches and this one is similar to previous episodes, and this one is more severe than previous episodes. The symptoms are alleviated by nothing. the symptoms are aggravated by lights, movement, noise. The patient has experienced similar episodes in the past, multiple times. 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 - Social history:: Smoking status: Patient denies any tobacco usage or history of. ROS: 06:11 Eyes: Negative for injury, pain, redness, and discharge, ENT: Negative for injury, mh7 pain, and discharge. 06:11 Neck: Negative for injury, pain, and swelling, Cardiovascular: Negative for chest pain, palpitations, and edema, Respiratory: Negative for shortness of breath, cough, wheezing, and pleuritic chest pain. 06:11 Back: Negative for injury and pain, : Negative for injury, bleeding, discharge, and swelling, MS/Extremity: Negative for injury and deformity, Skin: Negative for injury, rash, and discoloration. 06:11 Psych: Negative for depression, anxiety, suicide ideation, homicidal ideation, and hallucinations, Allergy/Immunology: Negative for hives, rash, and allergies, Endocrine: Negative for neck swelling, polydipsia, polyuria, polyphagia, and marked weight changes, Hematologic/Lymphatic: Negative for swollen nodes, abnormal bleeding, and unusual bruising. 06:11 Constitutional: Positive for fever, poor PO intake. 06:11 Abdomen/GI: Positive for nausea, vomiting, Negative for abdominal pain, diarrhea, constipation, abdominal cramps, abdominal distension, anorexia, dysphagia, hematemesis, black/tarry stool, rectal pain, rectal bleeding, bowel incontinence, flatulence. 06:11 Neuro: Positive for headache, Negative for altered mental status, dizziness, gait disturbance, hearing loss, loss of consciousness, numbness, seizure activity, speech changes, syncope, near syncope, tingling, tinnitus, tremor, visual changes, weakness. Exam: 06:11 Constitutional: This is a well developed, well nourished patient who is awake, alert, mh7 and in no acute distress. Head/Face: Normocephalic, atraumatic. Eyes: Pupils equal round and reactive to light, extra-ocular motions intact. Lids and lashes normal. Conjunctiva and sclera are non-icteric and not injected. Cornea within normal limits. Periorbital areas with no swelling, redness, or edema. ENT: Nares patent. No nasal discharge, no septal abnormalities noted. Tympanic membranes are normal and external auditory canals are clear. Oropharynx with no redness, swelling, or masses, exudates, or evidence of obstruction, uvula midline. Mucous membranes moist. Neck: Trachea midline, no thyromegaly or masses palpated, and no cervical lymphadenopathy. Supple, full range of motion without nuchal rigidity, or vertebral point tenderness. No Meningismus. Chest/axilla: Normal chest wall appearance and motion. Nontender with no deformity. No lesions are appreciated. Cardiovascular: Regular rate and rhythm with a normal S1 and S2. No gallops, murmurs, or rubs. Normal PMI, no JVD. No pulse deficits. Respiratory: Lungs have equal breath sounds bilaterally, clear to auscultation and percussion. No rales, rhonchi or wheezes noted. No increased work of breathing, no retractions or nasal flaring. Abdomen/GI: Soft, non-tender, with normal bowel sounds. No distension or tympany. No guarding or rebound. No evidence of tenderness throughout. Back: No spinal tenderness. No costovertebral tenderness. Full range of motion. Skin: Warm, dry with normal turgor. Normal color with no rashes, no lesions, and no evidence of cellulitis. MS/ Extremity: Pulses equal, no cyanosis. Neurovascular intact. Full, normal range of motion. Neuro: Awake and alert, GCS 15, oriented to person, place, time, and situation. Cranial nerves II-XII grossly intact. Motor strength 5/5 in all extremities. Sensory grossly intact. Cerebellar exam normal. Normal gait. Psych: Awake, alert, with orientation to person, place and time. Behavior, mood, and affect are within normal limits. Vital Signs: 02:14 BP 122 / 69; Pulse 99; Resp 18; Temp 99.4(O); Pulse Ox 98% on R/A; Weight 91.63 kg (R); lp1 Height 5 ft. 8 in. (172.72 cm); Pain 10/10; 04:00 BP 98 / 79; Pulse 91; Resp 18; Pulse Ox 99% on R/A; lp1 05:00 BP 109 / 70; Pulse 88; Resp 18; Pulse Ox 100% on R/A; lp1 05:56 BP 110 / 57; Pulse 75; Resp 18; Pulse Ox 100% on R/A; lp1 06:53 BP 107 / 51; Pulse 69; Resp 18; Temp 98.7(O); Pulse Ox 100% on R/A; Pain 0/10; lp1 02:14 Body Mass Index 30.71 (91.63 kg, 172.72 cm) lp1 Tammy Coma Score: 06:24 Eye Response: spontaneous(4). Verbal Response: oriented(5). Motor Response: obeys mh7 commands(6). Total: 15. MDM: 03:30 Patient medically screened. [facility] 06:24 Differential diagnosis: cluster headache, meningitis, migraine, tension headache. Data [facility] reviewed: vital signs, nurses notes, lab test result(s), CBC, white blood cell count, hemoglobin, hematocrit, platelets, urinalysis, radiologic studies, CT scan. 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 Interpretation: normal. Counseling: I had a detailed discussion with the patient and/or guardian regarding: the historical points, exam findings, and any diagnostic results supporting the discharge/admit diagnosis, lab results, radiology results. ED course: Feels better, NAD, VSS, no focal neurological deficits. No headache, nausea, vomiting, or fever. Discussed all test results and findings with the patient and recommended LP to evaluate for [employer] infection. Patient refused LP. Explained the possibility of permanent disability and/or to herself and her fetus if serious infection is present and goes untreated. Patient verbalized that she understood this information as presented.. 03/11 03:44 Order name: CBC with Diff [facility] 03/11 03:44 Order name: BMP [facility] 03/11 03:44 Order name: UA [facility] 03/11 03:44 Order name: PT-INR; Complete Time: 04:45 [facility] 03/11 03:44 Order name: Blood Culture Adult (2) [facility] 03/11 03:44 Order name: CBC with Automated Diff; Complete Time: 04:45 EDMS 03/11 03:44 Order name: Basic Metabolic Panel; Complete Time: 06:19 EDND 03/11 04:20 Order name: CT Head Brain wo Cont [facility] 03/11 04:21 Order name: Urine Dipstick--Ancillary (enter results) 2 03/11 04:22 Order name: Urine Dipstick-Ancillary; Complete Time: 04:45 EDMS 03/11 03:44 Order name: Heart Tones; Complete Time: 04:32 [facility] Administered Medications: 04:00 Drug: NS 0.9% 1000 ml Route: IV; Rate: 125 ml/hr; Site: left antecubital; lp1 04:00 Drug: Reglan 10 mg Route: IVP; Site: left antecubital; lp1 05:06 Follow up: Response: Marked relief of symptoms lp1 04:00 Drug: Benadryl 50 mg Route: IVP; Site: left antecubital; lp1 05:06 Follow up: Response: Marked relief of symptoms lp1 05:56 Drug: Rocephin - (cefTRIAXone) 1 grams Route: IVPB; Infused Over: 30 mins; Site: left lp1 antecubital; Disposition: 03/11/20 06:40 Patient has left against medical advice. Impression: Headache, Fever, unspecified, related conditions, unspecified, second trimester. - Patients states they are going to Home. - Condition is Stable. - Discharge Instructions: Fever, Adult, General Headache Without Cause. Follow up: Private Physician; When: 1 - 2 days; Reason: Worsening of condition, Re-evaluation by your physician. - Problem is an acute exacerbation. - Symptoms have improved. Signatures: Dispatcher [employer] EDGabbie Hernandez RN RN lp1 Pelon Gayle MD MD mh7 Corrections: (The following items were deleted from the chart) 06:54 06:40 03/11/2020 06:40 Patients has left against medical advice. Impression: Headache; lp1 Fever, unspecified; related conditions, unspecified, second trimester. Patient states they are going to Home. Condition is Stable. Follow up: Private Physician; When: 1 - 2 days; Reason: Worsening of condition, Re-evaluation by your physician. Problem is an acute exacerbation. Symptoms have improved. mh7
[2020-03-11 07:17] VITALS: O2SAT 100
[2020-03-11 07:20] VITALS: BP 107/51; TEMP 98.7
--- NOTE | 2020-03-11 21:56 | RAD REPORT ---
EXAM DESCRIPTION: CT head/brain without contrast CLINICAL HISTORY: HEADACHE COMPARISON: None. TECHNIQUE: Head/brain axial images acquired without contrast. Coronal and sagittal reformats created . Exam performed according to departmental dose-optimization program which includes automated exposur e control, adjustment of mA and/or kV according to patient size, and/or use of iterative reconstructi on technique. FINDINGS: No midline shift, mass effect, intracranial hemorrhage, or hydrocephalus. Brain parenchyma unremarkable. Paranasal sinuses and mastoid air cells clear. No skull fracture or significant skull lesion. IMPRESSION: Unremarkable CT head without contrast. Electronically signed by: Markus Sorensen MD 03/11/2020 5:41 AM CDT Due to temporary technical issues with the PACS/Fluency reporting system, reports are being signed by the in house radiologist as a courtesy to ensure prompt reporting. The interpreting radiologist is f ully responsible for the content of the report.
== END 2020-03-11 06:54 | disposition left against medical advice (07) ==
LOC: ER 01:50
DX: O26.92 Pregnancy related conditions, unspecified, second trimester (principal); R50.9 Fever, unspecified; R51 Headache; Z53.29 Procedure and treatment not carried out because of patient's decision for other reasons; Z88.6 Allergy status to analgesic agent
CPT/HCPCS: 87040 ×2; 85025; 80048; 36415; 85610; 81003; 70450; 96375; 96374; 99284; J2765; J1200; J0696; J7030